=== PATIENT | female | born 2005 | race Caucasian/White ===

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

== ENCOUNTER 2023-02-13 13:33 | Outpatient (REF) | payer MEDICAID, SELFPAY ==
[2023-02-15 09:53] LABS: Hepatitis C Ab w Rflx HCV PCR Negative (Negative)
[2023-02-15 10:34] LABS: HIV-1/2 Ag & Ab Screen Negative (Negative)
[2023-02-15 10:47] LABS: Syphilis Serology (RPR) Negative (Negative)
[2023-02-15 13:23] LABS: Chlamydia Result Negative (Negative); GC Result Negative (Negative)
== END 2023-02-13 13:34 | disposition home or self-care (01) ==
LOC: NCHCN 13:33
PROVIDERS: Visit Provider Nurse Practitioner Family
DX: Z11.3 Encounter for screening for infections with a predominantly sexual mode of transmission (principal); Z11.4 Encounter for screening for human immunodeficiency virus [HIV]; Z11.59 Encounter for screening for other viral diseases; Z01.84 Encounter for antibody response examination
CPT/HCPCS: 86803; 87389; 87491; 87591; 86592

== ENCOUNTER 2023-05-07 13:35 | Outpatient (REF) | payer MEDICAID, SELFPAY ==
[2023-05-09 14:37] LABS: Chlamydia Result Negative (Negative); GC Result Negative (Negative)
== END 2023-05-07 13:36 | disposition home or self-care (01) ==
LOC: LBN 13:35
PROVIDERS: Visit Provider Physician Assistant
DX: Z11.3 Encounter for screening for infections with a predominantly sexual mode of transmission (principal); R30.0 Dysuria
CPT/HCPCS: 87491; 87591; 87480; 87510; 87660

== ENCOUNTER → 2023-05-16 01:33 | Outpatient (CLI) | payer MEDICAID, SELFPAY ==
--- NOTE | 2023-05-16 08:00 | DI.US_ITS ---
Exam(s) US PELVIS TRANSVAGINAL EXAM: US PELVIS TRANSVAGINAL CLINICAL HISTORY: pelvic pain,R10.2 TECHNIQUE: Transabdominal and transvaginal imaging was performed using standard protocol. COMPARISON: No exams were available for comparison FINDINGS: UTERUS: Anteverted. 7.3 x 2.8 x 4.9 cm Endometrium: 2 mm , IUD in place. Myometrium: Unremarkable. Cervix: Unremarkable. OVARIES: Right: Cyst or mass: 4.1 cm cyst with some internal echoes. No evidence of torsion. Left: Cyst or mass: None. DOPPLER: Color: Symmetric and uniform flow to both ovaries. No hyperemia. CUL-DE-SAC: Free fluid: None. IMPRESSION: 1. Normal-appearing uterus with IUD in place. 2. 4.1cm right ovarian cyst.. DATA REPOSITORY:
== END ==
PROVIDERS: Visit Provider Physician Assistant
DX: Z97.5 Presence of (intrauterine) contraceptive device (principal); N83.201 Unspecified ovarian cyst, right side
CPT/HCPCS: 76830; 76856

== ENCOUNTER 2023-11-07 14:08 | Outpatient (REF) | payer SELFPAY ==
[2023-11-08 21:17] LABS: HIV-1/2 Ag & Ab Screen Negative (Negative)
[2023-11-08 21:23] LABS: Hepatitis C Ab w Rflx HCV PCR Negative (Negative)
[2023-11-09 13:35] LABS: Chlamydia Result Positive (Negative); GC Result Negative (Negative)
[2023-11-11 12:23] LABS: Syphilis Serology (RPR) Negative (Negative)
== END 2023-11-07 14:09 | disposition home or self-care (01) ==
LOC: NCHCN 14:08
PROVIDERS: Visit Provider Nurse Practitioner Family
DX: Z11.59 Encounter for screening for other viral diseases (principal)
CPT/HCPCS: 86803; 87389; 87491; 87591; 86592

== ENCOUNTER 2024-03-09 03:02 | Outpatient (CLI) | payer MEDICAID, SELFPAY ==
[2024-03-09 11:59] LABS: Panorama Kit Sent via Fed Ex
[2024-03-09 12:02] LABS: Abs Immature Grans 0.04 10^3/uL (0.0-0.06); Absolute Basophil Count 0.05 10^3/uL (0.0-0.2); Absolute Eosinophil Count 0.03 10^3/uL (0.0-0.7); Absolute Monocyte Count 0.53 10^3/uL (0.1-0.8); Basophils % 0.5 %; Eosinophils % 0.3 %; HCT 41.1 % (36.0-46.0); HGB 14.1 g/dL (11.2-15.7); Immature Grans % 0.4 %; Lymphocytes % 10.3 %; MCH 31.6 pg (27.0-33.0); MCHC 34.3 % (32.0-36.0); MCV 92 fL (80-95); Monocytes % 5.4 %; Neutrophils % 83.1 %; Platelet Count 263 10^3/uL (130-400); RBC 4.46 10^6/uL (3.93-5.22); RDW 11.6 % (11.7-14.6); RDW-SD 38.9 fL; WBC 9.75 10^3/uL (4.4-10.8)
[2024-03-09 18:36] LABS: Hepatitis B Surface Ag Negative (Negative)
[2024-03-09 19:08] LABS: Hepatitis C Ab w Rflx HCV PCR Negative (Negative)
[2024-03-09 19:13] LABS: HIV-1/2 Ag & Ab Screen Negative (Negative)
[2024-03-10 10:26] LABS: Rubella IgG Ab (UVM) Positive (See Note); Varicella IgG Antibody Negative (See Note)
[2024-03-11 23:08] LABS: Syphilis IgG w/Reflex Nonreactive (Nonreactive)
[2024-03-21 03:02] LABS: Result Summary NEGATIVE; Specimen WB Whole Blood
== END 2024-03-09 03:03 | disposition home or self-care (01) ==
LOC: LBO 03:03
PROVIDERS: Visit Provider Advanced Practice Midwife
DX: Z34.91 Encounter for supervision of normal pregnancy, unspecified, first trimester (principal)
CPT/HCPCS: 36415; 81220; 81222; 86787; 86803; 86850; 86900; 86901; 87340; 87389; 85025; 86762; 86780

== ENCOUNTER 2024-03-09 11:44 | Outpatient (REF) | payer MEDICAID, SELFPAY ==
[2024-03-09 13:47] LABS: *AMPHETAMINES SCREEN URINE Negative (Negative); *BARBITURATES SCREEN URINE Negative (Negative); *BENZODIAZEPINES SCREEN URINE Negative (Negative); Cannabinoids THC Positive (Negative); Cocaine Screen,Urine Negative (Negative); METHADONE URINE SCREEN Negative (Negative); OPIATES URINE SCREEN Negative (Negative)
[2024-03-09 13:49] LABS: Tricyclic Antidepressants Negative (Negative)
[2024-03-11 11:46] LABS: Fentanyl Scr w/Rfx Confirm Negative ng/mL (<1)
[2024-03-11 14:15] LABS: Chlamydia Result Negative (Negative); GC Result Negative (Negative)
[2024-03-14 12:45] LABS: Buprenorphine Negative ng/mL (Cutoff: 5.0); Norbuprenorphine Negative ng/mL (Cutoff: 2.5)
== END 2024-03-09 11:45 | disposition home or self-care (01) ==
LOC: LBN 11:44
PROVIDERS: Visit Provider Advanced Practice Midwife
DX: Z34.91 Encounter for supervision of normal pregnancy, unspecified, first trimester (principal); Z81.3 Family history of other psychoactive substance abuse and dependence
CPT/HCPCS: 80307; 80348; 87491; 87591; 87086

== ENCOUNTER 2024-07-03 02:15 | Outpatient (CLI) | payer MEDICAID, SELFPAY ==
[2024-07-03 10:35] LABS: HCT 39.4 % (36.0-46.0); HGB 13.4 g/dL (11.2-15.7); MCH 30.8 pg (27.0-33.0); MCV 91 fL (80-95); MPV 10.8 fL (8.0-11.0); Platelet Count 251 10^3/uL (130-400); RBC 4.35 10^6/uL (3.93-5.22); RDW 13.4 % (11.7-14.6); WBC 6.06 10^3/uL (4.4-10.8)
[2024-07-03 10:44] LABS: Glucose,1 Hr (Glucola) 154 mg/dL (80-140)
== END 2024-07-03 02:16 | disposition home or self-care (01) ==
PROVIDERS: Visit Provider Obstetrics & Gynecology
DX: Z34.93 Encounter for supervision of normal pregnancy, unspecified, third trimester
CPT/HCPCS: 36415; 82950; 85027

== ENCOUNTER 2024-07-03 09:54 | Outpatient (REF) | payer MEDICAID, SELFPAY ==
[2024-07-03 10:59] LABS: *AMPHETAMINES SCREEN URINE Negative (Negative); *BARBITURATES SCREEN URINE Negative (Negative); *BENZODIAZEPINES SCREEN URINE Negative (Negative); Cannabinoids THC Positive (Negative); Cocaine Screen,Urine Negative (Negative); METHADONE URINE SCREEN Negative (Negative); OPIATES URINE SCREEN Negative (Negative)
[2024-07-03 11:01] LABS: Tricyclic Antidepressants Negative (Negative)
[2024-07-06 11:19] LABS: Fentanyl Scr w/Rfx Confirm Negative ng/mL (<1)
[2024-07-09 11:39] LABS: Buprenorphine Negative ng/mL (Cutoff: 5.0)
== END 2024-07-03 09:55 | disposition home or self-care (01) ==
LOC: LBN 09:54
PROVIDERS: Visit Provider Obstetrics & Gynecology
DX: Z34.92 Encounter for supervision of normal pregnancy, unspecified, second trimester (principal)
CPT/HCPCS: 80307; 80348

== ENCOUNTER 2024-07-10 00:44 | Outpatient (CLI) | payer MEDICAID, SELFPAY ==
[2024-07-10 10:12] LABS: Glucose 1 Hour 153 mg/dL
[2024-07-10 12:00] LABS: Glucose 3 Hour 103 mg/dL
== END 2024-07-10 00:45 | disposition home or self-care (01) ==
LOC: LBO 00:44
PROVIDERS: Obstetrics & Gynecology; Visit Provider Obstetrics & Gynecology
DX: Z34.92 Encounter for supervision of normal pregnancy, unspecified, second trimester (principal)
CPT/HCPCS: 36415; 82951

== ENCOUNTER 2024-08-14 15:22 | Outpatient (CLI) | payer MEDICAID, SELFPAY ==
[2024-08-14 14:09] VITALS: O2SAT 97
[2024-08-14 14:29] LABS: HCT 40.1 % (36.0-46.0); HGB 13.5 g/dL (11.2-15.7); MCH 30.4 pg (27.0-33.0); MCHC 33.7 % (32.0-36.0); MCV 90 fL (80-95); MPV 12.3 fL (8.0-11.0); Platelet Count 276 10^3/uL (130-400); RBC 4.44 10^6/uL (3.93-5.22); RDW 12.4 % (11.7-14.6); RDW-SD 41.1 fL
[2024-08-14 14:59] LABS: COMMENT (LAB VIEW ONLY) 236.22 mg/dL; PROTEIN 62.8 mg/dL; Prot/Crea Ur Ratio 0.26
[2024-08-14 15:11] LABS: ALT 26 U/L (14-59); AST 19 U/L (15-37); Albumin 2.8 g/dL (3.4-5.0); Alkaline Phosphatase 215 U/L (46-116); Anion Gap 9.4 mmol/L (3-11); BUN 8 mg/dL (7-18); Bilirubin, Total 0.3 mg/dL (0.2-1.0); CO2 25.6 mmol/L (21.0-32.0); CREATININE 0.7 mg/dL (0.55-1.02); Chloride 106 mmol/L (98-107); Estimated GFR 126.11 (mL/min/1.73m2); Glucose 75 mg/dL (74-106); Potassium 3.7 mmol/L (3.5-5.1); Sodium 141 mmol/L (136-145); Total Protein 7.7 g/dL (6.4-8.2)
== END 2024-08-14 15:23 | disposition home or self-care (01) ==
LOC: LBO 15:22
PROVIDERS: Visit Provider Obstetrics & Gynecology
DX: O02.81 Inappropriate change in quantitative human chorionic gonadotropin (hCG) in early pregnancy; O16.3 Unspecified maternal hypertension, third trimester
CPT/HCPCS: 36415; 80053; 85027; 82565; 84156

== ENCOUNTER 2024-08-18 10:44 | Outpatient (REF) | payer MEDICAID, SELFPAY | END 2024-08-18 10:45 | disposition home or self-care (01) | LOC: LBN 10:44 | PROVIDERS: Visit Provider Obstetrics & Gynecology | DX: Z34.93 Encounter for supervision of normal pregnancy, unspecified, third trimester (principal); Z3A.34 34 weeks gestation of pregnancy | CPT/HCPCS: 87081 ==

== ENCOUNTER 2024-08-21 09:19 | Outpatient (CLI) | payer MEDICAID, SELFPAY ==
[2024-08-21] VITALS (7 sets, daily range): BP systolic 134–140; BP diastolic 86–97; PULSE 70–76; TEMP 36.6
[2024-08-21 14:46] LABS: HCT 38.1 % (36.0-46.0); HGB 12.9 g/dL (11.2-15.7); MCH 30.5 pg (27.0-33.0); MCHC 33.9 % (32.0-36.0); MCV 90 fL (80-95); MPV 12.6 fL (8.0-11.0); Platelet Count 234 10^3/uL (130-400); RBC 4.23 10^6/uL (3.93-5.22); RDW 12.4 % (11.7-14.6); RDW-SD 40.8 fL; WBC 9.08 10^3/uL (4.4-10.8)
[2024-08-21 15:03] LABS: ALT 28 U/L (14-59); AST 20 U/L (15-37); Albumin 2.7 g/dL (3.4-5.0); Alkaline Phosphatase 205 U/L (46-116); Anion Gap 8.9 mmol/L (3-11); BUN 9 mg/dL (7-18); Bilirubin, Total 0.3 mg/dL (0.2-1.0); CO2 25.1 mmol/L (21.0-32.0); CREATININE 0.7 mg/dL (0.55-1.02); Calcium 8.7 mg/dL (8.5-10.1); Chloride 105 mmol/L (98-107); Estimated GFR 126.11 (mL/min/1.73m2); Glucose 78 mg/dL (74-106); Potassium 3.7 mmol/L (3.5-5.1); Sodium 139 mmol/L (136-145); Total Protein 6.9 g/dL (6.4-8.2)
[2024-08-21 15:03] LABS: COMMENT (LAB VIEW ONLY) 236.75 mg/dL; PROTEIN 96.1 mg/dL
--- NOTE | 2024-08-21 17:52 | W.OBNST ---
Date of service: 08/21/24 Time of Service: 15:00 NST Evaluation Reason for NST Reasons for Nonstress Test: GESTATIONAL HYPERTENSION Gestational Age Gestational Age in Weeks and Days: 34 Weeks and 5Days Test and Monitor Explained Test/Monitor Explained: Test Explained, Monitor Explained and Patient Verbalized Understanding Vital Signs Blood Pressure: 134/86 Pulse: 75 Temperature: 97.8 F Urine Results Urine Protein: Positive Urine Ketones: Negative Urine Glucose: Negative Urine Blood: Negative NST Information Date on Monitor: 08/21/24 Time on Monitor: 13:00 Date off Monitor: 08/21/24 Time off Monitor: 14:11 Total Time on Monitor: 71 NST Interventions: PO Hydration Contraction Frequency: 1-7 NST Evaluation Patient States Movement: Present FHR Baseline: 125 Variability: Moderate 6-25 bpm Accelerations: 15x15 Decelerations: None NST Results: Reactive Note Ultrasound Done: N/A (done in Radiology). NST Note Note: See record NST Reviewed and Verified by: Vicky Escalante
== END 2024-08-21 15:40 ==
LOC: BCD 09:20 → OBS 13:51
PROVIDERS: Visit Provider Obstetrics & Gynecology
DX: O16.3 Unspecified maternal hypertension, third trimester (principal); Z3A.34 34 weeks gestation of pregnancy
CPT/HCPCS: 59025; 80053; 85027; 82565; 84156

== ENCOUNTER 2024-08-21 09:21 | Outpatient (CLI) | payer MEDICAID, SELFPAY ==
--- NOTE | 2024-08-21 09:15 | DI.US_ITS ---
Exam(s) US OB GREGORIO, WEIGHT BIO PROF. EXAM: US OB GREGORIO, WEIGHT BIO PROF. CLINICAL HISTORY: elevated blood pressures in , O16.3. TECHNIQUE: Transabdominal obstetrical ultrasound performed. COMPARISON: US US OB 2-3 TRIMESTER from 05/19/2024 FINDINGS: Number of fetuses: 1 position: CEPHALIC Placental location: There is a succenturiate lobe. There is a grade 1 to grade 2 anterior placenta. There is an accessory placenta in the fundus. No evidence of previa. BIOMETRIC DATA: BPD: 8.38cm, 33weeks 5days HC: 30.46cm, 33weeks 6days AC: 28.38cm, 32weeks 3days FL: 5.86cm, 30weeks 4days EFW: 1,908.2g, 4lb 5.17oz, 3% Composite Age: 32weeks 5days ANTONI: 10/16/2024 Heart Rate: 136bpm Amniotic fluid index: 14.41cm. The largest pocket is 5.91 cm. BIOPHYSICAL PROFILE SCORE: breathin out of 2 movement: 2 out of 2 tone: 2 out of 2 Amniotic fluid: 2 out of 2 Overall biophysical profile score: 6 out of 8. UMBILICAL ARTERY DOPPLER: Proximal/mid/distal PI: 1.02/1.03/0.91 RI: 0.66/0.64/0.60 S/D ratio: 3.0/2.8/2.5 The pulsatility and resistive indices are within the 50th and 95th percentile. The SD ratio is in the 50th to 95th percentile in its proximal and mid portions and in the 5th to 50t h percentile in the distal portion. IMPRESSION: 1. Single live intrauterine gestation as above. 2. Estimated weight is 1908gms. This is the 3rd percentile. 3. Amniotic fluid index is 14.1 cm. The largest pocket is 5.91 cm. 4. The overall biophysical profile score is 6 out of 8. 5. The umbilical artery Dopplers are within normal limits. DATA REPOSITORY:
== END 2024-08-21 09:41 ==
LOC: DI 09:21
PROVIDERS: Visit Provider Obstetrics & Gynecology
DX: O16.3 Unspecified maternal hypertension, third trimester (principal); Z3A.33 33 weeks gestation of pregnancy
CPT/HCPCS: 76816; 76819

== ENCOUNTER 2024-08-24 07:20 | Outpatient (CLI) | payer MEDICAID, SELFPAY ==
[2024-08-24 13:08] VITALS: BP 138/95; PULSE 79; TEMP 36.8
[2024-08-24 13:27] VITALS: BP 138/95; PULSE 79
[2024-08-24 13:38] VITALS: BP 134/93; PULSE 71
--- NOTE | 2024-08-24 13:44 | W.OBNST ---
Date of service: 08/24/24 Time of Service: 13:44 NST Evaluation Reason for NST Reasons for Nonstress Test: GESTATIONAL HYPERTENSION Gestational Age Gestational Age in Weeks and Days: 35 Weeks and 1Days Test and Monitor Explained Test/Monitor Explained: Test Explained, Monitor Explained and Patient Verbalized Understanding Vital Signs Blood Pressure: 138/95 Pulse: 79 Temperature: 98.2 F NST Information Date on Monitor: 08/24/24 Time on Monitor: 13:11 Date off Monitor: 08/24/24 Time off Monitor: 13:36 Total Time on Monitor: 25 NST Interventions: PO Hydration NST Evaluation Patient States Movement: Present FHR Baseline: 140 Variability: Moderate 6-25 bpm Accelerations: 15x15 Decelerations: None NST Results: Reactive Note Ultrasound Done: N/A. NST Note Note: Patient seen on the center for testing. NST is reactive, category 1 with a wildly active child. Blood pressure remained stable. She is having no signs or symptoms of worsening preeclampsia. She will have twice weekly testing, and labor induction scheduled at this point at 37 weeks. All questions answered. NST Reviewed and Verified by: Karol Juárez
[2024-08-24 13:45] VITALS: BP 138/95; PULSE 79; TEMP 36.8
== END 2024-08-24 13:47 | disposition other institution (70) ==
LOC: BCD 07:23 → OBS 13:07
PROVIDERS: Visit Provider Obstetrics & Gynecology
DX: Z3A.35 35 weeks gestation of pregnancy (principal); O13.3 Gestational [pregnancy-induced] hypertension without significant proteinuria, third trimester
CPT/HCPCS: 59025

== ENCOUNTER 2024-08-28 10:42 | Outpatient (CLI) | payer MEDICAID, SELFPAY ==
[2024-08-28 13:32] VITALS: BP 135/77; PULSE 80
--- NOTE | 2024-08-28 14:49 | PDOC.NST_ITS ---
Date of service: 08/28/24 Time of Service: 14:49 NST Evaluation Reason for NST Reasons for Nonstress Test: OTHER, SEE COMMENT Reason for NST Other: Pre ecclampsia and growth restriction Gestational Age Gestational Age in Weeks and Days: 35 Weeks and 5Days Test and Monitor Explained Test/Monitor Explained: Test Explained Vital Signs Blood Pressure: 135/77 Pulse: 80 NST Information Time on Monitor: 13:10 NST Interventions: None NST Evaluation Patient States Movement: Present FHR Baseline: 125 Variability: Moderate 6-25 bpm Accelerations: 15x15 Decelerations: None NST Results: Reactive Note Ultrasound Done: N/A. NST Note Note: NST reactive and reassuring. Blood pressures still elevated but not severe range . Patient denies s/sx of pre-eclampsia and reports good movement. To have pre-E labs repeated, today. Discussed possibility of 24 hour urine for accuracy; however, patient lost her dog in a tragic event, today, and does not feel like she will be able to complete it appropriately at this time. Scheduled for repeat dopplers given growth restriction for early next week. Precautions reviewed and encouraged a low threshold for seeking immediate medical evaluation if any concerns arise. Of note, patient states plan in place for induction at 37 weeks. We discussed the possible need for moving the induction to sooner if any evidence of further deterioration arises. She was offered to be taken off of work at this time, but currently declines for financial purposes. NST Reviewed and Verified by: Sunita Escobar
[2024-08-28 16:13] VITALS: BP 135/77; PULSE 80
== END 2024-08-28 15:14 ==
LOC: BCD 10:46 → OBS 13:04
PROVIDERS: PCP Obstetrics & Gynecology; Visit Provider Obstetrics & Gynecology
DX: Z3A.35 35 weeks gestation of pregnancy (principal); O14.03 Mild to moderate pre-eclampsia, third trimester; O36.5930 Maternal care for other known or suspected poor fetal growth, third trimester, not applicable or unspecified
CPT/HCPCS: 59025

== ENCOUNTER 2024-08-28 16:31 | Outpatient (CLI) | payer MEDICAID, SELFPAY ==
[2024-08-28 14:13] LABS: HGB 13.4 g/dL (11.2-15.7); MCH 30.3 pg (27.0-33.0); MCHC 34.4 % (32.0-36.0); MCV 88 fL (80-95); MPV 12.8 fL (8.0-11.0); Platelet Count 247 10^3/uL (130-400); RBC 4.42 10^6/uL (3.93-5.22); RDW 12.4 % (11.7-14.6); RDW-SD 40.2 fL; WBC 7.56 10^3/uL (4.4-10.8)
[2024-08-28 14:47] LABS: COMMENT (LAB VIEW ONLY) 175.41 mg/dL; PROTEIN 101.6 mg/dL; Prot/Crea Ur Ratio 0.57
[2024-08-28 15:14] LABS: ALT 34 U/L (14-59); AST 26 U/L (15-37); Albumin 2.7 g/dL (3.4-5.0); Alkaline Phosphatase 229 U/L (46-116); Anion Gap 8.6 mmol/L (3-11); BUN 10 mg/dL (7-18); Bilirubin, Total 0.3 mg/dL (0.2-1.0); CO2 26.4 mmol/L (21.0-32.0); CREATININE 0.7 mg/dL (0.55-1.02); Calcium 9.3 mg/dL (8.5-10.1); Chloride 106 mmol/L (98-107); Estimated GFR 126.11 (mL/min/1.73m2); Glucose 89 mg/dL (74-106); Potassium 3.6 mmol/L (3.5-5.1); Sodium 141 mmol/L (136-145); Total Protein 7.2 g/dL (6.4-8.2)
== END 2024-08-28 16:32 | disposition home or self-care (01) ==
LOC: LBO 16:34
PROVIDERS: PCP Obstetrics & Gynecology; Visit Provider Obstetrics & Gynecology
DX: O14.93 Unspecified pre-eclampsia, third trimester (principal); P05.9 Newborn affected by slow intrauterine growth, unspecified
CPT/HCPCS: 36415; 80053; 85027; 82565; 84156

== ENCOUNTER 2024-08-31 01:52 | Outpatient (CLI) | payer MEDICAID, SELFPAY ==
--- NOTE | 2024-08-31 07:00 | DI.US_ITS ---
Exam(s) US OB GREGORIO UMBILICAL ARTERY EXAM: US OB GREGORIO UMBILICAL ARTERY CLINICAL HISTORY: symmetrical growth restriction,P05.9. TECHNIQUE: Transabdominal obstetrical ultrasound was performed. COMPARISON: US US OB GREGORIO, WEIGHT BIO PROF. from 08/21/2024 FINDINGS: There is a single viable intrauterine gestation with cardiac activity identified-134 bpm. Fetu s is presently in cephalic position . The placenta is grade 2-and anterior-fundal with succenturiate lobe and no evidence of placenta previ a. Amniotic Fluid Index is within normal limits, measuring 14.2 cm cm. Dating parameters places at approximately 33 weeks and 2 days gestational age, implying ANTONI of 10/17/2024 BPD measures 34 weeks and 2 days Head circumference measures 34 weeks and 0 days Abdominal circumference measures 32 weeks and 4 days Femur length measures 32 weeks and 1 day Estimated weight is 2039 grams (4 pounds, 8 ounces). Fetus is at less than 3rd percentile on the Hadlock scale. UMBILICAL ARTERY DOPPLER READINGS: Prox( side)/mid level/distal (placental side) readings are as follows: PI: 1.29/0.80/0.95 the proximal PI reading is high RI: 0.68/0.54/0.61 S/D ratio: 3.2/2.2/2.5 IMPRESSION: 1. Single viable intrauterine gestation which remains less than 3rd percentile. 2. Umbilical artery readings are as above. The proximal PI reading is 1.29 which is elevated. Other readings are within normal limits. 3. Normal amount of amniotic fluid with GREGORIO equals 14.2 cm DATA REPOSITORY:
== END 2024-08-31 02:12 ==
LOC: DI 01:52
PROVIDERS: PCP Obstetrics & Gynecology; Visit Provider Obstetrics & Gynecology
DX: O36.5930 Maternal care for other known or suspected poor fetal growth, third trimester, not applicable or unspecified (principal); Z3A.34 34 weeks gestation of pregnancy
CPT/HCPCS: 76816; 76820

== ENCOUNTER 2024-08-31 08:08 | Outpatient (CLI) | payer MEDICAID, SELFPAY ==
[2024-08-31 13:17] VITALS: PULSE 62
[2024-08-31 13:50] VITALS: BP 132/88; PULSE 62; TEMP 36.7
--- NOTE | 2024-08-31 15:12 | W.OBNST ---
Date of service: 08/31/24 Time of Service: 13:30 NST Evaluation Reason for NST Reasons for Nonstress Test: OTHER, SEE COMMENT Reason for NST Other: Pre-E Gestational Age Gestational Age in Weeks and Days: 36 Weeks and 1Days Test and Monitor Explained Test/Monitor Explained: Test Explained, Monitor Explained and Patient Verbalized Understanding Vital Signs Blood Pressure: 132/88 Pulse: 62 Temperature: 98.1 F NST Information Date on Monitor: 08/31/24 Time on Monitor: 13:16 Date off Monitor: 08/31/24 Time off Monitor: 13:56 Total Time on Monitor: 40 NST Interventions: PO Hydration Contraction Frequency: 2-7 NST Evaluation Patient States Movement: Present FHR Baseline: 130 Variability: Moderate 6-25 bpm Accelerations: 15x15 Decelerations: None NST Results: Reactive Note Ultrasound Done: N/A. NST Note Note: see records NST Reviewed and Verified by: Vicky Escalante
[2024-08-31 15:19] VITALS: BP 132/88; PULSE 62; TEMP 36.7
== END 2024-08-31 14:14 ==
LOC: BCD 08:09 → OBS 13:13
PROVIDERS: PCP Obstetrics & Gynecology; Visit Provider Obstetrics & Gynecology
DX: Z3A.36 36 weeks gestation of pregnancy (principal); O14.03 Mild to moderate pre-eclampsia, third trimester
CPT/HCPCS: 59025

== ENCOUNTER 2024-09-04 07:31 | Outpatient (CLI) | payer MEDICAID, SELFPAY ==
[2024-09-04 13:09] VITALS: BP 147/86; PULSE 77; TEMP 36.7
[2024-09-04 13:14] VITALS: BP 147/86; PULSE 77
[2024-09-04 13:30] VITALS: BP 138/94; PULSE 72
--- NOTE | 2024-09-04 17:06 | W.OBNST ---
Date of service: 09/04/24 Time of Service: 13:30 NST Evaluation Reason for NST Reasons for Nonstress Test: GESTATIONAL HYPERTENSION Gestational Age Gestational Age in Weeks and Days: 36 Weeks and 5Days Test and Monitor Explained Test/Monitor Explained: Test Explained, Monitor Explained and Patient Verbalized Understanding Vital Signs Blood Pressure: 147/86 Pulse: 77 Temperature: 98.1 F Urine Results Urine Protein: Positive Urine Ketones: Negative Urine Glucose: Negative Urine Blood: Negative NST Information Date on Monitor: 09/04/24 Time on Monitor: 13:09 Date off Monitor: 09/04/24 Time off Monitor: 13:32 Total Time on Monitor: 23 NST Interventions: PO Hydration NST Evaluation Patient States Movement: Present FHR Baseline: 120 Variability: Moderate 6-25 bpm Accelerations: 15x15 Decelerations: None NST Results: Reactive Note Ultrasound Done: N/A. NST Note Note: See record NST Reviewed and Verified by: Vicky Escalante
[2024-09-04 17:07] VITALS: BP 147/86; PULSE 77; TEMP 36.7
== END 2024-09-04 13:50 ==
LOC: BCD 07:32 → OBS 13:05
PROVIDERS: PCP Obstetrics & Gynecology; Visit Provider Obstetrics & Gynecology
DX: O13.3 Gestational [pregnancy-induced] hypertension without significant proteinuria, third trimester (principal); Z3A.36 36 weeks gestation of pregnancy
CPT/HCPCS: 59025

== ENCOUNTER 2024-09-06 14:01 | Inpatient (IN) | payer MEDICAID, SELFPAY ==
--- NOTE | 2024-09-04 14:10 | W.PM.OBHPL1 ---
Date of service: 09/06/24 Time of Service: 19:00 Assessment and Plan Assessment and plan (1) Pre-eclampsia: Status: Acute Assessment and plan: 37wk IOL - will start with misoprostol for cervical ripening. We discussed the various methods that may be used and what to expect. Will monitor labs and BPs. Currently stable and asymptomatic. (2) Symmetrical growth restriction: Status: Acute Assessment and plan: Will monitor baby. NSTs have been reactive. Peds aware of her planned induction. (3) Maternal varicella, non-immune: Status: Acute Assessment and plan: Offer vaccine pp. (4) Placenta succenturiata in third trimester: Status: Acute Assessment and plan: Will be prepared for increased risk of retained placenta and PPH. OB-HPI Labor/Delivery History of Present Illness Reason for Visit: PEC Chief Complaint: Scheduled Induction of Labor Indication for Induction: Intrauterine Growth Restriction/ Growth Restriction and PreEclampsia. ANTONI Calculator Estimated Delivery Date Method Current WG Current Estimate 09/27/24 Ultrasound #1 37w 1d Other Estimates 09/10/24 LMP (Uncertain) 39w 4d Comments: P0 coming for induction of labor 09/06/24 at 37wks due to PEC without severe features but in the setting of FGR. EFW on 08/31 was 2039g (4lb 8oz). She has remained asymptomatic and felt excellent movement. History of Present Expected Delivery Route/Plan - elects MD shanti ALEXANDER- Jerardo (first baby together) Varicella non-immune, offer vaccine BG - Tammie May Specific Issues/Plan 1. Anxiety and ADHD - no medications or treatments. 2. 5-Ps pos. for family use - UDS +THC positive both at admission and 28 weeks. Referral to for Family Care Plan 3. VZV NI - offer vaccine pp 4. gHTN/PEC - weekly labs, NST's w/BP checks twice weekly. - Anticipate IOL 37 weeks 5. growth Restriction - Growth sono 08/21/24: EFW <3%ile, normal dopplers, normal GREGORIO, BPP 8/10 (No breathing noted) 6. GBS+ - ppx during labor 7. Succenturiate lobe cfDNA low risk x5 Contraceptive Planning - Plans for IUD Review of Systems Constitutional Constitutional: Reports system reviewed and no additional complaints, except as documented Gastrointestinal Gastrointestinal: Denies nausea and Denies vomiting Genitourinary Genitourinary: Reports system reviewed and no additional complaints, except as documented Musculoskeletal Comments: No regular contractions PFSH All Active Problems (Updated 09/07/24 @ 06:17 by Vicky Escalante MD) Placenta succenturiata in third trimester (Acute) Symmetrical growth restriction (Acute) Pre-eclampsia (Acute) Maternal varicella, non-immune (Acute) Marijuana use (Acute) Anxiety (Chronic) (Acute) Medical History (Updated 09/07/24 @ 06:17 by Vicky Escalante MD) Family history of drug use ADHD Ovarian cyst, right declined f/u sono Hx of prematurity Born at 34 weeks Tibial torsion Family History (Updated 03/09/24 @ 11:00 by Kinza Mauricio CNM) Father Essential hypertension Maternal Grandmother Hypertension Diabetes Maternal Grandfather Diabetes Alcohol use disorder Brother Depression Anxiety ADHD Substance use disorder Paternal Grandfather Alcohol use disorder Paternal Grandmother Alcohol use disorder Social History (Updated 03/09/24 @ 12:17 by Kinza Mauricio CNM) Smoking/Tobacco Use Status: Never Smoking risk assessment performed?: Yes Drug use: Never Substance use type: marijuana Housing: house Sexually active: Yes Do you feel safe at home: Yes Do you feel safe in your relationship?: Yes Female Reproductive History Menstrual control method: progestin IUCD History History 1 Para Hx # Term Pregnancies 0 Multiple births Hx # Pregnancies Ectopic pregnancies AB induced Hx Number of Living Children AB spontaneous Meds Allergies and Home Medications Allergies Allergy/AdvReac Type Severity Reaction Status Date / Time No Known Allergies Allergy Verified 08/31/24 13:05 Home Medications ?Medication ?Instructions ?Recorded ?Confirmed ?Type PNV 153-FA 400 mcg-om3 35 mg-dha 2 tab PO DAILY 03/09/24 09/06/24 History 25 mg-epa 5 mg-fish oil chew tablet ( Gummies) Exam Detailed Labor and Delivery Exam Dilation: 1 Effacement (%): 70 station: -2 Cervix position: posterior Consistency: medium Larkin Score: Cervical Points Exam 0 1 2 3 Dilation Closed 1-2cm 3-4 cm 5-6cm Effacement 0-30% 40-50% 60-70% 80% Consistency Firm Medium Soft Station -3 -2 -1,0 +1,+2 Position Posterior Mid Anterior Detailed HEENT Exam Head: Present normocephalic and atraumatic Detailed Abdominal Exam Comments: gravid, nontender Detailed Neurological Exam Neurological: Present alert, oriented X3 and CN II-XII intact DetailedPsychiatric Exam Psychiatric: Present normal affect, normal thought process and cooperative Risk Assessment Risk for Shoulder Dystocia Historical/Initial OB: NEGATIVE FOR: Pelvic Abnormality, Pre- BMI>30, Previous Shoulder Dystocia or Previous Macrosomia Risk for Pre-Eclampsia Yes, if one or more: NEGATIVE FOR: Hx Pre-E/Gest HTN, Chronic HTN, Multiple Gestation, Pre-gestational DM, Renal Disease, Systemic Lupus or APA Syndrome Yes, if 2 or more: POSITIVE FOR: Nulliparity; NEGATIVE FOR: Age>= 35 yrs, >10yr btwn pregnancies, BMI>30, ethinicty, Mother/Sister w/ Pre-E or Previous IUGR Risk for Post- Hemorrhage Initial: NEGATIVE FOR: Multiple Gestation, Previous PPH, Known Clotting Deficiency, Grand Multiparity or Anticoagulation Risks Reviewed Risks Reviewed Upon Admission: Yes
[2024-09-06 19:39] VITALS: BP 142/95; PULSE 80
[2024-09-06 19:54] VITALS: BP 142/95; PULSE 80; RESP 16; TEMP 36.7
[2024-09-06 20:06] LABS: HCT 36.4 % (36.0-46.0); HGB 12.4 g/dL (11.2-15.7); MCH 30.6 pg (27.0-33.0); MCHC 34.1 % (32.0-36.0); MCV 90 fL (80-95); Platelet Count 211 10^3/uL (130-400); RBC 4.05 10^6/uL (3.93-5.22); RDW 12.5 % (11.7-14.6); RDW-SD 40.7 fL; WBC 8.43 10^3/uL (4.4-10.8)
[2024-09-06] MEDS: miSOPROStol 25 MCG TAB PO (20:15)
[2024-09-06 20:20] LABS: ALT 26 U/L (14-59); AST 18 U/L (15-37); Albumin 2.5 g/dL (3.4-5.0); Alkaline Phosphatase 209 U/L (46-116); Anion Gap 10.9 mmol/L (3-11); BUN 11 mg/dL (7-18); Bilirubin, Total 0.2 mg/dL (0.2-1.0); CO2 22.1 mmol/L (21.0-32.0); CREATININE 0.8 mg/dL (0.55-1.02); Calcium 8.8 mg/dL (8.5-10.1); Chloride 108 mmol/L (98-107); Estimated GFR 107.44 (mL/min/1.73m2); Glucose 89 mg/dL (74-106); Potassium 3.8 mmol/L (3.5-5.1); Sodium 141 mmol/L (136-145); Total Protein 6.6 g/dL (6.4-8.2)
[2024-09-06 22:09] VITALS: BP 136/91; PULSE 70
[2024-09-06 23:43] VITALS: BP 132/86; PULSE 67; TEMP 36.8
[2024-09-07] VITALS (76 sets, daily range): BP systolic 133–192; BP diastolic 66–121; PULSE 0–90; RESP 18; TEMP 36.5–36.8; O2SAT 97–100; BMI 23.6
[2024-09-07 00:16] LABS: *AMPHETAMINES SCREEN URINE Negative (Negative); *BARBITURATES SCREEN URINE Negative (Negative); *BENZODIAZEPINES SCREEN URINE Negative (Negative); Cannabinoids THC Positive (Negative); Cocaine Screen,Urine Negative (Negative); METHADONE URINE SCREEN Negative (Negative); OPIATES URINE SCREEN Negative (Negative); Tricyclic Antidepressants Negative (Negative)
[2024-09-07] MEDS: Normal Saline Flush 10 ML SYR IVP (05:20)
--- NOTE | 2024-09-07 06:02 | W.PM.PROGNOT ---
Date of Service Date of service: 09/07/24 Time of Service: 06:02 Subjective Subjective Interval history since last seen: Pt has had 1 dose of misoprostol with resulting cramping but not too uncomfortable. She did not get a second dose due to uterine irritability. She was able to sleep some overnight. She denies headache, n/v. Feeling movement. No bleeding/LOF. Objective Last Vital Signs Temp 98.2 F 09/06/24 23:43 Pulse 60 09/07/24 04:53 Resp 16 09/06/24 19:54 BP 153/97 H 09/07/24 04:53 Laboratory Results - last 24 hr 09/06/24 09/06/24 19:53 23:45 WBC 8.43 RBC 4.05 Hgb 12.4 Hct 36.4 MCV 90 MCH 30.6 MCHC 34.1 RDW 12.5 Plt Count 211 MPV Sodium 141 Potassium 3.8 Chloride 108 H Carbon Dioxide 22.1 Anion Gap 10.9 BUN 11 Creatinine 0.8 Est GFR (CKD-EPI 2020) 107.44 Glucose 89 Calcium 8.8 Total Bilirubin 0.2 AST 18 ALT 26 Alkaline Phosphatase 209 H Total Protein 6.6 Albumin 2.5 L Urine Opiates Screen Negative Urine Methadone Screen Negative Ur Barbiturates Screen Negative Ur Tricyclics Screen Negative Ur Amphetamines Screen Negative U Benzodiazepines Scrn Negative Urine Cocaine Screen Negative Ur THC Screen Positive A ABO/Rh O Positive Antibody Screen NEGATIVE
--- NOTE | 2024-09-07 06:12 | PGE_ITS ---
Date of service: 09/07/24 Time of Service: 06:12 Pelvic Exam Comments: Checked by nurse at 5:00 with cervix still posterior, not significantly changed. Fetus A Heart Rate Baseline: 120 Variability: Moderate (6-25 BPM) Categories: Category I Accelerations: 15 X 15 Decelerations: None Amniotic Membrane Status: Intact Assessment and Plan Assessment and plan (1) Pre-eclampsia: Status: Acute Assessment and plan: BP slightly higher then it has been. Pt still asymptomatic. Will start PO labetalol. If BPs become severe range will start mag sulfate. Will continue to monitor sxms and labs. Plan to start pitocin for continued labor induction. Reviewed expected contractions and pain management options. Reviewed continuous monitoring for s igns of distress. (2) Symmetrical growth restriction: Status: Acute Assessment and plan: status reassuring (3) Placenta succenturiata in third trimester: Status: Acute Assessment and plan: Will be prepared for retained placenta and possible increase bleeding. Objective Abnormal lab results 09/06/24 09/06/24 Range/Units 19:53 23:45 Chloride 108 H (98-107) mmol/L Alkaline Phosphatase 209 H (46-116) U/L Albumin 2.5 L (3.4-5.0) g/dL Ur THC Screen Positive A (Negative) Temp Pulse Resp BP 98.2 F 60 16 153/97 H 09/06/24 23:43 09/07/24 04:53 09/06/24 19:54 09/07/24 04:53 Laboratory Results WBC 8.43 10^3/uL (4.4-10.8) 09/06/24 19:53 RBC 4.05 10^6/uL (3.93-5.22) 09/06/24 19:53 Hgb 12.4 g/dL (11.2-15.7) 09/06/24 19:53 Hct 36.4 % (36.0-46.0) 09/06/24 19:53 MCV 90 fL (80-95) 09/06/24 19:53 MCH 30.6 pg (27.0-33.0) 09/06/24 19:53 MCHC 34.1 % (32.0-36.0) 09/06/24 19:53 RDW 12.5 % (11.7-14.6) 09/06/24 19:53 Plt Count 211 10^3/uL (130-400) 09/06/24 19:53 MPV fL (8.0-11.0) 09/06/24 19:53 Sodium 141 mmol/L (136-145) 09/06/24 19:53 Potassium 3.8 mmol/L (3.5-5.1) 09/06/24 19:53 Chloride 108 mmol/L (98-107) H 09/06/24 19:53 Carbon Dioxide 22.1 mmol/L (21.0-32.0) 09/06/24 19:53 Anion Gap 10.9 mmol/L (3-11) 09/06/24 19:53 BUN 11 mg/dL (7-18) 09/06/24 19:53 Creatinine 0.8 mg/dL (0.55-1.02) 09/06/24 19:53 Est GFR (CKD-EPI 2020) 107.44 (mL/min/1.73m2) 09/06/24 19:53 Glucose 89 mg/dL (74-106) 09/06/24 19:53 Calcium 8.8 mg/dL (8.5-10.1) 09/06/24 19:53 Total Bilirubin 0.2 mg/dL (0.2-1.0) 09/06/24 19:53 AST 18 U/L (15-37) 09/06/24 19:53 ALT 26 U/L (14-59) 09/06/24 19:53 Alkaline Phosphatase 209 U/L (46-116) H 09/06/24 19:53 Total Protein 6.6 g/dL (6.4-8.2) 09/06/24 19:53 Albumin 2.5 g/dL (3.4-5.0) L 09/06/24 19:53 Urine Opiates Screen Negative (Negative) 09/06/24 23:45 Urine Methadone Screen Negative (Negative) 09/06/24 23:45 Ur Barbiturates Screen Negative (Negative) 09/06/24 23:45 Ur Tricyclics Screen Negative (Negative) 09/06/24 23:45 Ur Amphetamines Screen Negative (Negative) 09/06/24 23:45 U Benzodiazepines Scrn Negative (Negative) 09/06/24 23:45 Urine Cocaine Screen Negative (Negative) 09/06/24 23:45 Ur THC Screen Positive (Negative) A 09/06/24 23:45 ABO/Rh O Positive 09/06/24 19:53 Antibody Screen NEGATIVE 09/06/24 19:53 Vital Signs Reviewed: Yes Objective Narrative Objective Narrative: Bps 130-80s prior to this. Subjective Interval history since last seen: Pt has had 1 dose of misoprostol with resulting cramping but not too uncomfortable. She did not get a second dose due to uterine irritability. She was able to sleep some overnight. She denies headache, n/v. Feeling movement. No bleeding/LOF. Results Hemoglobin/Hematocrit: Hgb 12.4 g/dL (11.2-15.7) 09/06/24 19:53 Hct 36.4 % (36.0-46.0) 09/06/24 19:53 Abnormal Lab Findings: Abnormal Labs 09/06/24 09/06/24 19:53 23:45 Chloride 108 H Alkaline Phosphatase 209 H Albumin 2.5 L Ur THC Screen Positive A
[2024-09-07] MEDS: Oxytocin/Normal Saline 30 UNIT/500 ML BAG 2 UNITS IV (06:29)
[2024-09-07] MEDS: Lactated Ringers 1,000 ML 125 ML IV ×2 (06:30→14:37)
[2024-09-07] MEDS: Labetalol 100 MG TAB 200 MG PO ×2 (06:31→15:40)
--- NOTE | 2024-09-07 07:25 | ANES.PREOP_ITS ---
General Info Date of Service Date Performed: 09/07/24 Height: 5 ft 3 in Weight: 60.328 kg Body Mass Index (BMI): 23.6 Meds Allergies and Home Medications Allergies Allergy/AdvReac Type Severity Reaction Status Date / Time No Known Allergies Allergy Verified 08/31/24 13:05 Home Medication ?Medication ?Instructions ?Recorded PNV 153-FA 400 mcg-om3 35 mg-dha 2 tab PO DAILY 03/09/24 25 mg-epa 5 mg-fish oil chew tablet ( Gummies) Current Visit Medications: Current Medications Generic Name Dose Route Start Last Admin Trade Name Freq PRN Reason Stop Dose Admin Ringer's Solution 1,000 mls @ 200 mls/hr 09/04/24 14:15 09/07/24 06:30 IV 125 mls/hr INFUSION CHICO Administration Oxytocin/Sodium Chloride 30 unit in 500 mls @ 2 mls/hr 09/07/24 06:15 09/07/24 06:29 Pitocin/Normal Saline IV 2 milliunits/min INFUSION CHICO 2 mls/hr Administration Protocol 2 MILLIUNITS/MIN IV Miscellaneous Supplies 1 each 09/04/24 14:15 09/07/24 05:18 Iv Access IV 1 each DIRECTED CHICO Administration Labetalol HCl 200 mg 09/07/24 06:30 Labetalol 100 Mg Tab PO BID CHICO Sodium Chloride 0 ml 09/04/24 20:00 09/07/24 07:13 Normal Saline Flush 10 Ml Syr IVP Not Given BID CHICO Terbutaline Sulfate 0.25 mg 09/04/24 14:01 Terbutaline 1 Mg/Ml Vial SC PRN PRN PFSH Active Problems Active Problems: Problem Status Onset Code Placenta succenturiata in third trimester Acute O43.193 Symmetrical growth restriction Acute P05.9 Pre-eclampsia Acute O14.90 Maternal varicella, non-immune Acute O09.899, Z28.39 Marijuana use Acute F12.90 Anxiety Chronic F41.9 Acute Z34.90 Medical History Medical History (Updated 09/07/24 @ 06:17 by Vicky Escalante MD) Family history of drug use ADHD Ovarian cyst, right declined f/u sono Hx of prematurity Born at 34 weeks Tibial torsion Tobacco Smoking/Tobacco Use Status: Never Substance Use Substance use: Never Substance use type: marijuana Prental History History 2 1 Para 0 Hx # Term Pregnancies 0 Multiple births Hx # Pregnancies Ectopic pregnancies AB induced Hx Number of Living Children AB spontaneous Vital Signs and Lab Results Vital Signs Most Recent Vital Signs in EMR: Most Recent Vital Signs Temp Pulse Resp BP 36.8 C 60 16 141/89 H 09/06/24 23:43 09/07/24 06:27 09/06/24 19:54 09/07/24 06:27 Lab Results 09/06/24 19:53 09/06/24 19:53 Blood Type / Crossmatch: 2 Antibody Screen NEGATIVE 09/06/24 Complete Blood Count: 2 White Blood Count 8.43 10^3/uL (4.4-10.8) 09/06/24 19:53 Red Blood Count 4.05 10^6/uL (3.93-5.22) 09/06/24 19:53 Hemoglobin 12.4 g/dL (11.2-15.7) 09/06/24 19:53 Hematocrit 36.4 % (36.0-46.0) 09/06/24 19:53 Platelet Count 211 10^3/uL (130-400) 09/06/24 19:53 Complete Metabolic Panel: 2 Sodium 141 mmol/L (136-145) 09/06/24 19:53 Potassium 3.8 mmol/L (3.5-5.1) 09/06/24 19:53 Chloride 108 mmol/L (98-107) H 09/06/24 19:53 Carbon Dioxide 22.1 mmol/L (21.0-32.0) 09/06/24 19:53 BUN 11 mg/dL (7-18) 09/06/24 19:53 Creatinine 0.8 mg/dL (0.55-1.02) 09/06/24 19:53 Est GFR (CKD-EPI 2020) 107.44 (mL/min/1.73m2) 09/06/24 19:53 Calcium 8.8 mg/dL (8.5-10.1) 09/06/24 19:53 Albumin 2.5 g/dL (3.4-5.0) L 09/06/24 19:53 Glucose 89 mg/dL (74-106) 09/06/24 19:53 Liver Function Panel: 2 Alanine Aminotransferase (ALT/SGPT) 26 U/L (14-59) 09/06/24 19: 53 Aspartate Amino Transf (AST/SGOT) 18 U/L (15-37) 09/06/24 19:53 Coagulation Panel: 2 No Data to Display Cardiac Panel: 2 No Data to Display Arterial Blood Gas: 2 No Data to Display Venous Blood Gas: 2 No Data to Display Pancreas Panel: 2 No Data to Display Thyroid Panel: 2 No Data to Display Infectious Disease: 2 No Data to Display Blood Cultures: 2 No Data to Display Toxicology Panel: 2 Urine Amphetamines Screen Negative (Negative) 09/06/24 23:45 Urine Benzodiazepines Screen Negative (Negative) 09/06/24 23:4 5 Urine Barbiturates Screen Negative (Negative) 09/06/24 23:45 Urine Cocaine Screen Negative (Negative) 09/06/24 23:45 Urine Methadone Screen Negative (Negative) 09/06/24 23:45 Urine Opiates Screen Negative (Negative) 09/06/24 23:45 Ur Tricyclic Antidepressants Screen Negative (Negative) 23:45 Ur Tetrahydrocannabinol (THC) Scrn Positive (Negative) A 09/06 23:45 Panel: 2 No Data to Display Anesthesia Assessment and Plan Anesthesia History Personal History: No History of Anesthesia Complications Family History: No Family History of Anesthesia Complications Exercise Tolerance Exercise Tolerance: Metabolic Equivalents>4 Cardiac & Pulmonary Exam Cardiac Exam: Normal S1/S2 Heart Sounds Pulmonary Exam: Clear Bilateral Breath Sounds Implantable Cardiac Device Does patient have a Pacemaker or an ICD?: No Airway Exam Known Difficult Airway: No Mallampati Class: 2 Mouth Opening: Normal (> 3cm) Thyromental Distance: Greater than 3 cm Neck Range of Motion: Full ROM Neck Circumference: Normal Teeth Condition: Normal Dentition ASA Classification ASA Score: ASA 1 Emergency Case?: No NPO Status NPO Status: NPO Clears >2 hours, Solids >8 hours Status Status: Confirmed Anesthesia Plan Resuscitation Status: Full Code Anesthesia Technique: Epidural Anesthesia Airway Planned: Natural Airway Pain Management: Epidural Monitors Used: Standard Monitors Preoperative Comments:: 19 yo 37 wk G1 for IOL due to pre-eclampsia. Has had miso, being started on pit. Getting labetalol. Sig PMHx: ADHD/anxiety. occ cannabis. No home meds. + gHTN - asthma placenta succenturiate plt 211 Currently just started on Pitocin. She is unsure if she would like an epidural, but is interested in talking about it. We went over the process of epidural placement, risks of placement, and what to expect after. Her questions were answered and she will call if she has any further questions or is she would like an epidural.
[2024-09-07] MEDS: Penicillin G POT. 5,000,000 UNITS in Normal Saline 100 ML 200 UNITS IVPB (10:20)
[2024-09-07] MEDS: FentaNYL/ROPIvacaine 2 mcg/ml and 0.1% 200 ML CADD Cassette EP (14:20)
--- NOTE | 2024-09-07 14:26 | W.PM.OBNL1 ---
Date of service: 09/07/24 Time of Service: 13:00 Pelvic Exam Dilation: 3 Effacement (%): 80 station: -1 Cervix Position: mid Fetus A Heart Rate Baseline: 120 Presentation: Vertex Variability: Moderate (6-25 BPM) Categories: Category I Accelerations: 15 X 15 Decelerations: None Amniotic Membrane Status: Ruptured Rupture Method: Artifical Amniotic Fluid: Clear Assessment and Plan Assessment and plan (1) Pre-eclampsia: Status: Acute Assessment and plan: P0 @37wks undergoing induction for PEC. BPs have been mildly elevated but managed with PO meds. She has been asymptomatic with normal labs. S/p AROM - clear fluid. Pit at 8mU - will continue this. Objective Abnormal lab results 09/06/24 09/06/24 Range/Units 19:53 23:45 Chloride 108 H (98-107) mmol/L Alkaline Phosphatase 209 H (46-116) U/L Albumin 2.5 L (3.4-5.0) g/dL Ur THC Screen Positive A (Negative) Temp Pulse Resp BP Pulse Ox 98.2 F 57 L 18 165/107 H 100 09/07/24 08:04 09/07/24 14:25 09/07/24 08:04 09/07/24 14:23 09/07/24 14:25 Laboratory Results WBC 8.43 10^3/uL (4.4-10.8) 09/06/24 19:53 RBC 4.05 10^6/uL (3.93-5.22) 09/06/24 19:53 Hgb 12.4 g/dL (11.2-15.7) 09/06/24 19:53 Hct 36.4 % (36.0-46.0) 09/06/24 19:53 MCV 90 fL (80-95) 09/06/24 19:53 MCH 30.6 pg (27.0-33.0) 09/06/24 19:53 MCHC 34.1 % (32.0-36.0) 09/06/24 19:53 RDW 12.5 % (11.7-14.6) 09/06/24 19:53 Plt Count 211 10^3/uL (130-400) 09/06/24 19:53 MPV fL (8.0-11.0) 09/06/24 19:53 Sodium 141 mmol/L (136-145) 09/06/24 19:53 Potassium 3.8 mmol/L (3.5-5.1) 09/06/24 19:53 Chloride 108 mmol/L (98-107) H 09/06/24 19:53 Carbon Dioxide 22.1 mmol/L (21.0-32.0) 09/06/24 19:53 Anion Gap 10.9 mmol/L (3-11) 09/06/24 19:53 BUN 11 mg/dL (7-18) 09/06/24 19:53 Creatinine 0.8 mg/dL (0.55-1.02) 09/06/24 19:53 Est GFR (CKD-EPI 2020) 107.44 (mL/min/1.73m2) 09/06/24 19:53 Glucose 89 mg/dL (74-106) 09/06/24 19:53 Calcium 8.8 mg/dL (8.5-10.1) 09/06/24 19:53 Total Bilirubin 0.2 mg/dL (0.2-1.0) 09/06/24 19:53 AST 18 U/L (15-37) 09/06/24 19:53 ALT 26 U/L (14-59) 09/06/24 19:53 Alkaline Phosphatase 209 U/L (46-116) H 09/06/24 19:53 Total Protein 6.6 g/dL (6.4-8.2) 09/06/24 19:53 Albumin 2.5 g/dL (3.4-5.0) L 09/06/24 19:53 Urine Opiates Screen Negative (Negative) 09/06/24 23:45 Urine Methadone Screen Negative (Negative) 09/06/24 23:45 Ur Barbiturates Screen Negative (Negative) 09/06/24 23:45 Ur Tricyclics Screen Negative (Negative) 09/06/24 23:45 Ur Amphetamines Screen Negative (Negative) 09/06/24 23:45 U Benzodiazepines Scrn Negative (Negative) 09/06/24 23:45 Urine Cocaine Screen Negative (Negative) 09/06/24 23:45 Ur THC Screen Positive (Negative) A 09/06/24 23:45 ABO/Rh O Positive 09/06/24 19:53 Antibody Screen NEGATIVE 09/06/24 19:53 Vital Signs Reviewed: Yes Subjective Interval history since last seen: Pt with mild ctxs. Results Hemoglobin/Hematocrit: Hgb 12.4 g/dL (11.2-15.7) 09/06/24 19:53 Hct 36.4 % (36.0-46.0) 09/06/24 19:53 Abnormal Lab Findings: Abnormal Labs 09/06/24 09/06/24 19:53 23:45 Chloride 108 H Alkaline Phosphatase 209 H Albumin 2.5 L Ur THC Screen Positive A
[2024-09-07] MEDS: Penicillin G POT. 3,000,000 UNITS in Normal Saline 50 ML 100 UNITS IVPB (14:36)
--- NOTE | 2024-09-07 14:44 | ANES.NEUR_ITS ---
Epidural/Spinal Catheter Date Performed: 09/07/24 Procedure Start: 14:09 Procedure Stop: 14:13 Requesting Provider: Vicky Escalante Procedure Location: Obstetrics Reason Performed: Labor Epidural Standard Monitors Applied: Blood Pressure and SpO2 Patient Position: Sitting Sedation Given (Indicate Dose Given): No Sedation given Patient Mental Status: Awake Sterility: Hand Hygiene, Surgical Cap, Surgical Mask, Sterile Gloves, Sterile Drape/Sheet and Chlorhexidine Procedure Location: L2-L3 Interspace Epidural Needle: Tuohy 17 Guage Needle Length: 3.5 Inch Needle Approach: Midline Epidural Procedure: 1% Lidocaine to skin and subcutaneous tissue with 25G needle and RASHAUN to Saline Used Catheter Placed?: Catheter Placed (wire reinforced. ) Test Dose (Indicate Dose G iven): 3ml 1.5% Lidocaine with 1:200K Epinephrine Given Loss of Resistance Depth (cm): 5 Catheter depth at skin (cm): 10 Dressing: Sorbaview Dressing Placed, Mastisol Used and Dressing reinforced with Tape Epidural Provider Bolus (Indicate Dose Given): Total Ropivacaine 0.1% with Fentanyl 2mcg/ml Given from pump. (ml) (7 mL + 5 mL) Dose:: 12 mL Additives (Indicate Dose Given ): None Infusion Medication: Medication Infusion Began Medication Infusion: Ropivacaine 0.1% with Fentanyl 2mcg/ml Maintenance Infusion Rate (ml/hour): 10 PCEA Bolus Dose (ml): 5 Block Level: N/A Paresthesia: None Ultrasound: Used to nanci site (depth noted at 4.8 cm. ) Number of Attempts (See previous attempts in note section): 1 Procedure Tolerated: No Complications Procedure Outcome: Successful Performed By: Randall Cheema
--- NOTE | 2024-09-07 15:38 | W.PM.OBNL1 ---
Date of service: 09/07/24 Time of Service: 15:00 Fetus A Variability: Moderate (6-25 BPM) Categories: Category I Accelerations: 15 X 15 Decelerations: Early Assessment and Plan Assessment and plan (1) Pre-eclampsia: Status: Acute Assessment and plan: P0 undergoing induction for PEC with IUGR who experienced intermittent severe range BPs with quick onset of ctxs s/p AROM. This continued during the process of epidural placement but improved s/p adequate pain relief. She continues to have BPs in the upper mild range and therefore will be given a PO dose of Labetalol as it has been about 10hrs since her last dose. FHT reassuring. Pt is now comfortable and remains asymptomatic with regular ctxs. Objective Abnormal lab results 09/06/24 09/06/24 Range/Units 19:53 23:45 Chloride 108 H (98-107) mmol/L Alkaline Phosphatase 209 H (46-116) U/L Albumin 2.5 L (3.4-5.0) g/dL Ur THC Screen Positive A (Negative) Temp Pulse Resp BP Pulse Ox 97.7 F 59 L 18 159/90 H 99 09/07/24 15:00 09/07/24 15:29 09/07/24 15:00 09/07/24 15:29 09/07/24 15:00 Laboratory Results WBC 8.43 10^3/uL (4.4-10.8) 09/06/24 19:53 RBC 4.05 10^6/uL (3.93-5.22) 09/06/24 19:53 Hgb 12.4 g/dL (11.2-15.7) 09/06/24 19:53 Hct 36.4 % (36.0-46.0) 09/06/24 19:53 MCV 90 fL (80-95) 09/06/24 19:53 MCH 30.6 pg (27.0-33.0) 09/06/24 19:53 MCHC 34.1 % (32.0-36.0) 09/06/24 19:53 RDW 12.5 % (11.7-14.6) 09/06/24 19:53 Plt Count 211 10^3/uL (130-400) 09/06/24 19:53 MPV fL (8.0-11.0) 09/06/24 19:53 Sodium 141 mmol/L (136-145) 09/06/24 19:53 Potassium 3.8 mmol/L (3.5-5.1) 09/06/24 19:53 Chloride 108 mmol/L (98-107) H 09/06/24 19:53 Carbon Dioxide 22.1 mmol/L (21.0-32.0) 09/06/24 19:53 Anion Gap 10.9 mmol/L (3-11) 09/06/24 19:53 BUN 11 mg/dL (7-18) 09/06/24 19:53 Creatinine 0.8 mg/dL (0.55-1.02) 09/06/24 19:53 Est GFR (CKD-EPI 2020) 107.44 (mL/min/1.73m2) 09/06/24 19:53 Glucose 89 mg/dL (74-106) 09/06/24 19:53 Calcium 8.8 mg/dL (8.5-10.1) 09/06/24 19:53 Total Bilirubin 0.2 mg/dL (0.2-1.0) 09/06/24 19:53 AST 18 U/L (15-37) 09/06/24 19:53 ALT 26 U/L (14-59) 09/06/24 19:53 Alkaline Phosphatase 209 U/L (46-116) H 09/06/24 19:53 Total Protein 6.6 g/dL (6.4-8.2) 09/06/24 19:53 Albumin 2.5 g/dL (3.4-5.0) L 09/06/24 19:53 Urine Opiates Screen Negative (Negative) 09/06/24 23:45 Urine Methadone Screen Negative (Negative) 09/06/24 23:45 Ur Barbiturates Screen Negative (Negative) 09/06/24 23:45 Ur Tricyclics Screen Negative (Negative) 09/06/24 23:45 Ur Amphetamines Screen Negative (Negative) 09/06/24 23:45 U Benzodiazepines Scrn Negative (Negative) 09/06/24 23:45 Urine Cocaine Screen Negative (Negative) 09/06/24 23:45 Ur THC Screen Positive (Negative) A 09/06/24 23:45 ABO/Rh O Positive 09/06/24 19:53 Antibody Screen NEGATIVE 09/06/24 19:53 Vital Signs Reviewed: Yes Objective Narrative Objective Narrative: With increased pain her BPs elevated to severe range. She was in the process of receiving the epidural so the decision was made to hold off on IV treatment so as not to create post-epidural hypotension. After having several severe range BPs in a row, she would then have a lower one so IV meds were never given. Her BPs did lower overall after adequate pain management. They remained in the 140-150s/80-100. Subjective Interval history since last seen: Right after AROM, pt quickly progressed into regular close contractions. Pitocin was turned down to 4 and she requested an epidural. Pt is now comfortable with her epidural Results Hemoglobin/Hematocrit: Hgb 12.4 g/dL (11.2-15.7) 09/06/24 19:53 Hct 36.4 % (36.0-46.0) 09/06/24 19:53 Abnormal Lab Findings: Abnormal Labs 09/06/24 09/06/24 19:53 23:45 Chloride 108 H Alkaline Phosphatase 209 H Albumin 2.5 L Ur THC Screen Positive A
--- NOTE | 2024-09-07 17:32 | W.PM.OBNL1 ---
Date of service: 09/07/24 Time of Service: 17:32 Pelvic Exam Dilation: 9.5 Effacement (%): 100 station: +2 Fetus A Heart Rate Baseline: 120 Presentation: Vertex Variability: Moderate (6-25 BPM) Categories: Category I Accelerations: 15 X 15 Decelerations: None Amniotic Membrane Status: Ruptured Assessment and Plan Assessment and plan (1) Pre-eclampsia: Status: Acute Assessment and plan: P0 @37wks undergoing IOL for PEC. Pain well managed with epidural. Has developed higher BPs since onset of labor. Now with 2 severe range BPs in a row - will treat with IV labetalol x1 and repeat BP management prn. Pt remains asymptomatic. She has emptied her bladder and is likely fully dilated and ready to push. Objective Abnormal lab results 09/06/24 09/06/24 Range/Units 19:53 23:45 Chloride 108 H (98-107) mmol/L Alkaline Phosphatase 209 H (46-116) U/L Albumin 2.5 L (3.4-5.0) g/dL Ur THC Screen Positive A (Negative) Temp Pulse Resp BP Pulse Ox 98.2 F 63 18 162/110 H 99 09/07/24 16:49 09/07/24 17:30 09/07/24 16:00 09/07/24 17:30 09/07/24 15:00 Laboratory Results WBC 8.43 10^3/uL (4.4-10.8) 09/06/24 19:53 RBC 4.05 10^6/uL (3.93-5.22) 09/06/24 19:53 Hgb 12.4 g/dL (11.2-15.7) 09/06/24 19:53 Hct 36.4 % (36.0-46.0) 09/06/24 19:53 MCV 90 fL (80-95) 09/06/24 19:53 MCH 30.6 pg (27.0-33.0) 09/06/24 19:53 MCHC 34.1 % (32.0-36.0) 09/06/24 19:53 RDW 12.5 % (11.7-14.6) 09/06/24 19:53 Plt Count 211 10^3/uL (130-400) 09/06/24 19:53 MPV fL (8.0-11.0) 09/06/24 19:53 Sodium 141 mmol/L (136-145) 09/06/24 19:53 Potassium 3.8 mmol/L (3.5-5.1) 09/06/24 19:53 Chloride 108 mmol/L (98-107) H 09/06/24 19:53 Carbon Dioxide 22.1 mmol/L (21.0-32.0) 09/06/24 19:53 Anion Gap 10.9 mmol/L (3-11) 09/06/24 19:53 BUN 11 mg/dL (7-18) 09/06/24 19:53 Creatinine 0.8 mg/dL (0.55-1.02) 09/06/24 19:53 Est GFR (CKD-EPI 2020) 107.44 (mL/min/1.73m2) 09/06/24 19:53 Glucose 89 mg/dL (74-106) 09/06/24 19:53 Calcium 8.8 mg/dL (8.5-10.1) 09/06/24 19:53 Total Bilirubin 0.2 mg/dL (0.2-1.0) 09/06/24 19:53 AST 18 U/L (15-37) 09/06/24 19:53 ALT 26 U/L (14-59) 09/06/24 19:53 Alkaline Phosphatase 209 U/L (46-116) H 09/06/24 19:53 Total Protein 6.6 g/dL (6.4-8.2) 09/06/24 19:53 Albumin 2.5 g/dL (3.4-5.0) L 09/06/24 19:53 Urine Opiates Screen Negative (Negative) 09/06/24 23:45 Urine Methadone Screen Negative (Negative) 09/06/24 23:45 Ur Barbiturates Screen Negative (Negative) 09/06/24 23:45 Ur Tricyclics Screen Negative (Negative) 09/06/24 23:45 Ur Amphetamines Screen Negative (Negative) 09/06/24 23:45 U Benzodiazepines Scrn Negative (Negative) 09/06/24 23:45 Urine Cocaine Screen Negative (Negative) 09/06/24 23:45 Ur THC Screen Positive (Negative) A 09/06/24 23:45 ABO/Rh O Positive 09/06/24 19:53 Antibody Screen NEGATIVE 09/06/24 19:53 Vital Signs Reviewed: Yes Objective Narrative Objective Narrative: Severe range BP x2. Subjective Interval history since last seen: Pt still comfortable with epidural. Denies headache or visual changes. Feels some pelvic pressure. Results Hemoglobin/Hematocrit: Hgb 12.4 g/dL (11.2-15.7) 09/06/24 19:53 Hct 36.4 % (36.0-46.0) 09/06/24 19:53 Abnormal Lab Findings: Abnormal Labs 09/06/24 09/06/24 19:53 23:45 Chloride 108 H Alkaline Phosphatase 209 H Albumin 2.5 L Ur THC Screen Positive A
[2024-09-07] MEDS: Labetalol 100 MG/20 ML VIAL 20 MG IVP (17:35)
--- NOTE | 2024-09-07 18:06 | PLAC_PTH ---
PATIENT: Sidney Deshpande LOC: OBS U#:[id number] AGE/SX: 19/F ROOM: OBS.301 RE09/06/[address]: Vicky Escalante MD : 2005 BED: A DIS: 09/10/2024 SPEC #: [id number] RECD: 09/08/24 12:21 STATUS: JEFFERY REQ #: [id number] ROSALINA: 09/07/24 18:[address]: Vicky Escalante DEPT: Surgical Specimen RECD BY: Theresa Awan Tissues: 1 - PLACENTA (3RD TRIMESTER) Procedures: IMMUNOPEROXIDASE STAIN GROSS AND MICRO LEVEL 5 Comments: [id number]
--- NOTE | 2024-09-07 19:04 | OBVDS_ITS ---
Date of service: 09/07/24 Time of Service: 18:00 OB Labor/ Delivery Information Baby A Delivery Delivery Method: Spontaneaous Presentation: Vertex Vertex Position: Right Occipital Anterior Cord Description-Baby A: 3 Vessels Amniotic Fluid: Clear Estimated Blood Loss: 150 Delivery Outcome: Liveborn Providers Doctor: Vicky Escalante Workplace Trainer And Assessor: Randall Cheema Nurse: Augusta Emmanuel Nurse: Lori Gibson Labor/Delivery Information Number of Babies in Womb: 1 Steroids Given: None Reason Steroids Not Administered: N/A Group Beta Strep: Positive Antibiotics Administered: Yes Number of Doses of Antibiotics: 2 Rubella Status: Immune Blood Type: O+ Varicella Immunity: Nonimmune Shoulder Dystocia: No Note: The pt was found to be fully dilated. She pushed 10 mins to deliver the infant's head in MINDA position followed by the shoulders and the rest of the body through a loose cord. The baby was placed on mom's abdomen and was vigorous. After >1min the cord was clamped x2 and cut. Cord blood collected. The placenta delivered with gentle cord traction and fundal massage and appeared intact with an accessory lobe. 2 vaginal abrasions were repaired with 4-0 vicryl [id number] sutures. Fundus was firm with good hemostasis. Mom and baby stable at time of note. Stages of Labor Onset of Labor Date: 09/06/24 Onset of Labor Time: 20:15 Complete Dilatation Date: 09/07/24 Complete Dilatation Time: 17:46 Labor - Stage 1 Duration: 21 hours and 31 minutes ROM Baby A: 09/07/24 ROM Baby A: 12:58 ROM Total Time- Baby A: [id number] Infant Delivery Date-Baby A: 09/07/24 Infant Delivery Time-Baby A: 17:57 Labor Stage 2 Duration: 11 minutes Placenta Delivery Date-Baby A: 09/07/24 Placenta Delivery Time-Baby A: 18:06 Labor-Stage 3 Duration: 9 minutes Total Length of Labor-Baby A: 21 hours and 42 minutes Placenta Status: Delivered Baby A Gender: Female Gestational Status: Early Term (37-38.6 wks) Gestational Age in Weeks/Days: 37 Weeks and 1 Days Score-1 Minute Interval(Baby A) Heart Rate-1 minute: 100 BPM or Greater Respiratory Effort- 1 minute: Spontaneous/Strong Cry Muscle Tone-1 minute: Active Movement Reflex Response-1 minute: Prompt Response Color-1 minute: Pallor or Cyanosis Total Score-1 minute: 8 Score-5 Minute Interval(Baby A) Heart Rate- 5 minute: 100 BPM or Greater Respiratory Effort-5 minute: Spontaneous/Strong Cry Muscle Tone-5 minute: Active Movement Reflex Response-5 minute: Prompt Response Color-5 minute: Bluish Hands or Feet Total Score- 5 minute: 9
[2024-09-07 19:31] LABS: HGB 12.6 g/dL (11.2-15.7); MCH 30.5 pg (27.0-33.0); MCHC 34.1 % (32.0-36.0); MCV 90 fL (80-95); Platelet Count 227 10^3/uL (130-400); RBC 4.13 10^6/uL (3.93-5.22); RDW 12.6 % (11.7-14.6); RDW-SD 41.1 fL; WBC 15.09 10^3/uL (4.4-10.8)
[2024-09-07] MEDS: MAGNESIUM SULFATE 20 GM/500 ML BAG IV_INF (19:40)
[2024-09-07 19:44] LABS: ALT 25 U/L (14-59); AST 23 U/L (15-37); Albumin 2.4 g/dL (3.4-5.0); Alkaline Phosphatase 203 U/L (46-116); Anion Gap 12.1 mmol/L (3-11); BUN 8 mg/dL (7-18); Bilirubin, Total 0.4 mg/dL (0.2-1.0); CO2 22.9 mmol/L (21.0-32.0); CREATININE 0.7 mg/dL (0.55-1.02); Calcium 8.7 mg/dL (8.5-10.1); Chloride 106 mmol/L (98-107); Estimated GFR 126.11 (mL/min/1.73m2); Glucose 74 mg/dL (74-106); Potassium 3.9 mmol/L (3.5-5.1); Sodium 141 mmol/L (136-145); Total Protein 6.3 g/dL (6.4-8.2)
[2024-09-08] VITALS (40 sets, daily range): BP systolic 117–175; BP diastolic 60–113; PULSE 67–89; RESP 16; TEMP 36.4–36.9; O2SAT 96–98
--- NOTE | 2024-09-08 05:49 | W.PM.OBPNV1 ---
Date of service: 09/08/24 Time of Service: 05:50 Assessment and Plan Assessment and plan (1) Pre-eclampsia: Status: Acute Assessment and plan: P1 PPD #1 s/p NVD of 37wk due to FGR and PEC. Started mag immediately for severe range BPs. The BPs stablized without other medications and were 130-150s/70-90s overnight until just now. She remains asymptomatic and had normal labs last evening. Will plan to give her a first dose of nifedipine now and continue to monitor BPs. Repeat labs pending this am including mag level. Pt is aware she will be staying until tomorrow. Subjective Subjective Narrative: Pt is tired but feels well overall. Had a mild headache at one point but it's gone now. No significant pain. Minimal lochia. Baby is breast-feeding and doing well. Exam Physical Exam Vital signs: Temp Pulse Resp BP Pulse Ox 98.1 F 72 18 160/108 H 97 09/07/24 18:40 09/08/24 05:37 09/07/24 18:00 09/08/24 05:37 09/08/24 04:26 Vital Signs Reviewed: Yes Narrative: BPs mostly 130-140s/70-90s and are just recently elevated. Constitutional Constitutional: no acute distress and cooperative Detailed HEENT Exam Head: Present normocephalic and atraumatic Respiratory Exam Respiratory Exam: Normal Abdominal Exam Abdomen: Tender (mildly) Fundal Exam Fundus: Below Umbilicus and Firm Extremities Exam Extremity Exam: negative Calf Tenderness or Edema Comment: 2/3+ DTRs on L/R Detailed Neurological Exam Neurological: Present alert, oriented X3 and CN II-XII intact Results Hemoglobin/Hematocrit: Hgb 12.6 g/dL (11.2-15.7) 09/07/24 19:21 Hct 37.0 % (36.0-46.0) 09/07/24 19:21 Abnormal Lab Findings: Abnormal Labs 09/06/24 09/06/24 09/07/24 19:53 23:45 19:21 WBC 15.09 H MPV 13.0 H Chloride 108 H Anion Gap 12.1 H Alkaline Phosphatase 209 H 203 H Total Protein 6.3 L Albumin 2.5 L 2.4 L Ur THC Screen Positive A Additional Findings Results: Out-put >3500 (missed the hat once) Ins:<3000
[2024-09-08] MEDS: MAGNESIUM SULFATE 20 GM/500 ML BAG IV_INF ×2 (05:55→23:31)
[2024-09-08 07:01] LABS: HCT 35.6 % (36.0-46.0); HGB 12.3 g/dL (11.2-15.7); MCH 30.9 pg (27.0-33.0); MCHC 34.6 % (32.0-36.0); MCV 89 fL (80-95); MPV 12.7 fL (8.0-11.0); Platelet Count 184 10^3/uL (130-400); RBC 3.98 10^6/uL (3.93-5.22); RDW 12.3 % (11.7-14.6); RDW-SD 40.1 fL; WBC 10.04 10^3/uL (4.4-10.8)
[2024-09-08 07:16] LABS: ALT 23 U/L (14-59); AST 29 U/L (15-37); Albumin 2.3 g/dL (3.4-5.0); Alkaline Phosphatase 188 U/L (46-116); Anion Gap 8.2 mmol/L (3-11); BUN 4 mg/dL (7-18); Bilirubin, Total 0.3 mg/dL (0.2-1.0); CO2 24.8 mmol/L (21.0-32.0); CREATININE 0.6 mg/dL (0.55-1.02); Calcium 7.9 mg/dL (8.5-10.1); Chloride 108 mmol/L (98-107); Estimated GFR 130.88 (mL/min/1.73m2); Glucose 86 mg/dL (74-106); Potassium 3.8 mmol/L (3.5-5.1); Sodium 141 mmol/L (136-145); Total Protein 6.2 g/dL (6.4-8.2)
[2024-09-08 07:19] LABS: Magnesium 5.6 mg/dL (1.8-2.4)
[2024-09-08] MEDS: NIFEdipine-CR 30 MG TABCR PO ×2 (07:39→17:00)
[2024-09-08] MEDS: Dibucaine 1% 28 GM TUBE TP (07:40)
[2024-09-08] MEDS: Hamamelis Leaf/Glycerin 100 EACH BOX PR (07:40)
[2024-09-08] MEDS: Acetaminophen 325 MG TAB 650 MG PO (07:40)
--- NOTE | 2024-09-08 07:48 | W.ANESPOSTOP ---
Postoperative Evaluation Date, Time and Location Date Performed: 09/08/24 Time Performed: 06:45 Patient Location: Obstetrics Vital Signs Most Recent Imported Vital Signs: Most Recent Vital Signs Temp Pulse Resp BP Pulse Ox 36.7 C 70 18 136/98 H 97 09/07/24 18:40 09/08/24 07:20 09/07/24 18:00 09/08/24 07:20 09/08/24 04:26 Assessment Mental Status: Awake (Alert & Oriented to Patient Baseline) Airway and Respiratory Function: Patent airway with normal (patient baseline) respiratory exam Cardiovascular Function: Hemodynamically Stable Hydration Status: Adequately Hydrated Nausea & Vomiting: No Nausea or Vomiting Pain: Pain is tolerable per patient Peripheral Nerve Block: Patient did not receive a nerve block
[2024-09-08] MEDS: Lactated Ringers 1,000 ML 75 ML IV ×2 (09:31→21:46)
[2024-09-08] MEDS: Labetalol 100 MG/20 ML VIAL 20 MG IVP ×3 (10:45→20:21)
--- NOTE | 2024-09-08 10:58 | W.PM.OBPNV1 ---
Date of service: 09/08/24 Time of Service: 10:58 Assessment and Plan Assessment and plan (1) Pre-eclampsia: Status: Acute Assessment and plan: Preeclampsia with severe features. On magnesium sulfate for seizure prophylaxis. Will continually monitor urine output. Severe range pressures this morning. Received Procardia XL x 1, 30 mg. Subsequent dose of labetalol, 20 mg IV given recently. Will reevaluate shortly. Continue to monitor closely. (2) (normal spontaneous vaginal delivery): Status: Acute Subjective Subjective Interval history: Patient seen and examined this morning. I was called for severe range blood pressures of 170/108. She is currently on magnesium sulfate with a magnesium level that was previously greater than 5. For this reason she was 2 down to 1 g/h. She has a bedside commode for urine output which has been reasonably appropriate. She had a mild headache this morning which responded well to Tylenol. She has no visual changes or epigastric pain. She is not feeling lightheaded or dizzy. She has no visual changes. In addition to her 30 mg of Procardia XL which she received this morning, she received 20 mg of labetalol IV push for her severe range blood pressure. This will be rechecked in approximately 15 minutes post treatment. We discussed the fact that it is very important that we monitor accurately her POONAM. She will continue to use a bedside commode at this point, though Leonard catheter is not out of the question. Mag level was repeated this morning. Will continue to monitor closely her blood pressures, and treat severe range pressure when indicated. Exam Physical Exam Vital signs: Temp Pulse Resp BP Pulse Ox 97.5 F L 78 16 168/100 H 98 09/08/24 10:05 09/08/24 10:45 09/08/24 10:05 09/08/24 10:45 09/08/24 10:05 Vital Signs Reviewed: Yes Notable Details: Severe range pressures. Received 20 mg of labetalol IV, will recheck Constitutional Constitutional: no acute distress Neck Exam Neck Exam: Normal Respiratory Exam Respiratory Exam: Normal Cardiovascular Exam Cardiovascular Exam: Normal Abdominal Exam Comments: Soft, nontender Fundal Exam Fundus: Below Umbilicus and Firm Extremities Exam Extremity Exam: negative Calf Tenderness or Edema Comment: DTRs 3/4 symmetric, bilaterally, no clonus Detailed Neurological Exam Neurological: Present alert, oriented X3 and normal tone; Absent sensory deficit, motor deficit or clonus Results Hemoglobin/Hematocrit: Hgb 12.3 g/dL (11.2-15.7) 09/08/24 06:48 Hct 35.6 % (36.0-46.0) L 09/08/24 06:48 Abnormal Lab Findings: Abnormal Labs 09/06/24 09/06/24 09/07/24 19:53 23:45 19:21 WBC 15.09 H Hct MPV 13.0 H Chloride 108 H Anion Gap 12.1 H BUN Calcium Magnesium Alkaline Phosphatase 209 H 203 H Total Protein 6.3 L Albumin 2.5 L 2.4 L Ur THC Screen Positive A 09/08/24 06:48 WBC Hct 35.6 L MPV 12.7 H Chloride 108 H Anion Gap BUN 4 L Calcium 7.9 L Magnesium 5.6 H* Alkaline Phosphatase 188 H Total Protein 6.2 L Albumin 2.3 L Ur THC Screen
[2024-09-08 11:13] LABS: Magnesium 5.1 mg/dL (1.8-2.4)
[2024-09-08 11:50] LABS: Fentanyl Scr w/Rfx Confirm Negative ng/mL (<1)
--- NOTE | 2024-09-08 17:02 | W.PM.OBPNV1 ---
Date of service: 09/08/24 Time of Service: 17:03 Subjective Subjective Interval history: Patient seen and examined this afternoon. We do lengthy conversation regarding hypertension, antihypertensives, magnesium prophylaxis for preeclampsia with severe features. At this point, in light of the fact that her blood pressures are somewhat labile, she will continue on her magnesium sulfate. She is having good urinary output which ranges from 325 to 800 cc/h. She has no cephalgia, visual changes, epigastric discomfort. She did receive Procardia XL 30 mg this morning. She received a dose of labetalol 20 mg IV for severe range blood pressure midmorning. Up until this afternoon, her pressures had remained relatively stable. Her most recent blood pressure was 175/113 with no additional symptomatology. She received a second dose of Procardia XL and 20 mg of labetalol and we will recheck her blood pressure in approximately 20 minutes. All of these findings were discussed with the patient at length today. At this point, she will continue her magnesium, careful observation of her blood pressure and accurate I's and O's. She will repeat laboratory studies in the morning including CBC and a CMP. Her mag level for the afternoon is currently pending. Exam Physical Exam Vital signs: Temp Pulse Resp BP Pulse Ox 98.4 F 79 16 175/113 H 96 09/08/24 16:00 09/08/24 16:00 09/08/24 16:00 09/08/24 17:01 09/08/24 16:00 Results Hemoglobin/Hematocrit: Hgb 12.3 g/dL (11.2-15.7) 09/08/24 06:48 Hct 35.6 % (36.0-46.0) L 09/08/24 06:48 Abnormal Lab Findings: Abnormal Labs 09/06/24 09/06/24 09/07/24 19:53 23:45 19:21 WBC 15.09 H Hct MPV 13.0 H Chloride 108 H Anion Gap 12.1 H BUN Calcium Magnesium Alkaline Phosphatase 209 H 203 H Total Protein 6.3 L Albumin 2.5 L 2.4 L Ur THC Screen Positive A 09/08/24 09/08/24 06:48 10:45 WBC Hct 35.6 L MPV 12.7 H Chloride 108 H Anion Gap BUN 4 L Calcium 7.9 L Magnesium 5.6 H* 5.1 H* Alkaline Phosphatase 188 H Total Protein 6.2 L Albumin 2.3 L Ur THC Screen
[2024-09-08 17:35] LABS: Magnesium 4.4 mg/dL (1.8-2.4)
[2024-09-08] MEDS: Labetalol 100 MG TAB 200 MG PO (21:40)
[2024-09-08 23:16] LABS: Magnesium 3.8 mg/dL (1.8-2.4)
[2024-09-09] VITALS (10 sets, daily range): BP systolic 124–149; BP diastolic 71–95; PULSE 68–90; RESP 16–18; TEMP 36.6–37.5; O2SAT 97–99
[2024-09-09 04:15] LABS: Abs Immature Grans 0.02 10^3/uL (0.0-0.06); Absolute Basophil Count 0.04 10^3/uL (0.0-0.2); Absolute Eosinophil Count 0.12 10^3/uL (0.0-0.7); Absolute Lymphocyte Count 1.38 10^3/uL (1.2-3.4); Absolute Neutrophil Count 6.46 10^3/uL (1.2-6.7); Basophils % 0.5 %; Eosinophils % 1.4 %; Immature Grans % 0.2 %; Lymphocytes % 15.8 %; MCH 30.2 pg (27.0-33.0); MCHC 33.3 % (32.0-36.0); MCV 91 fL (80-95); MPV 12.4 fL (8.0-11.0); Neutrophils % 74.1 %; Platelet Count 193 10^3/uL (130-400); RBC 3.97 10^6/uL (3.93-5.22); RDW 12.6 % (11.7-14.6); RDW-SD 41.4 fL; WBC 8.72 10^3/uL (4.4-10.8)
[2024-09-09 04:30] LABS: ALT 33 U/L (14-59); AST 37 U/L (15-37); Albumin 2.4 g/dL (3.4-5.0); Alkaline Phosphatase 190 U/L (46-116); BUN 4 mg/dL (7-18); Bilirubin, Total 0.4 mg/dL (0.2-1.0); CREATININE 0.6 mg/dL (0.55-1.02); Calcium 8.2 mg/dL (8.5-10.1); Chloride 103 mmol/L (98-107); Estimated GFR 130.88 (mL/min/1.73m2); Glucose 85 mg/dL (74-106); Sodium 140 mmol/L (136-145); Total Protein 6.4 g/dL (6.4-8.2)
[2024-09-09] MEDS: Labetalol 100 MG TAB 200 MG PO ×2 (08:30→20:17)
[2024-09-09] MEDS: NIFEdipine-CR 30 MG TABCR PO ×2 (08:30→20:18)
[2024-09-09] MEDS: Normal Saline Flush 10 ML SYR IVP ×2 (08:31→20:18)
--- NOTE | 2024-09-09 08:36 | W.PM.OBPNV1 ---
Date of service: 09/09/24 Time of Service: 08:00 Assessment and Plan Assessment and plan (1) Pre-eclampsia: Status: Acute Assessment and plan: BPs were rather labile during the day yesterday but overnight they have been more stable. She is on Procardia 30XL BID and Labetalol 200mg PO BID. Magnesium is now off. Labs remained normal this am and she remains asymptomatic. Will continue to monitor BPs throughout the day. If stable, she should be able to d/c tomorrow am. (2) (normal spontaneous vaginal delivery): Status: Acute Subjective Subjective Narrative: Pt got a little more sleep last night. Denies headache. No n/v. Tolerating PO diet well. Minimal lochia. OOB without difficulty. Some struggling with breast-feeding but feeling ok overall. Mag just turned off this am. Exam Physical Exam Vital signs: Temp Pulse Resp BP Pulse Ox 97.9 F 86 16 136/90 97 09/09/24 07:00 09/09/24 08:28 09/09/24 07:00 09/09/24 08:28 09/09/24 08:28 Vital Signs Reviewed: Yes Narrative: BP range overnight 120-140s/70-90s. Constitutional Constitutional: no acute distress and cooperative Detailed HEENT Exam Head: Present normocephalic and atraumatic Respiratory Exam Respiratory Exam: Normal Abdominal Exam Abdomen: Tender (mildly) Fundal Exam Fundus: Below Umbilicus and Firm Extremities Exam Extremity Exam: negative Calf Tenderness or Edema Comment: 2+ DTRs b/l Detailed Neurological Exam Neurological: Present alert, oriented X3 and CN II-XII intact Results Hemoglobin/Hematocrit: Hgb 12.0 g/dL (11.2-15.7) 09/09/24 04:00 Hct 36.0 % (36.0-46.0) 09/09/24 04:00 Abnormal Lab Findings: Abnormal Labs 09/06/24 09/06/24 09/07/24 19:53 23:45 19:21 WBC 15.09 H Hct MPV 13.0 H Chloride 108 H Anion Gap 12.1 H BUN Calcium Magnesium Alkaline Phosphatase 209 H 203 H Total Protein 6.3 L Albumin 2.5 L 2.4 L Ur THC Screen Positive A 09/08/24 09/08/24 09/08/24 06:48 10:45 17:00 WBC Hct 35.6 L MPV 12.7 H Chloride 108 H Anion Gap BUN 4 L Calcium 7.9 L Magnesium 5.6 H* 5.1 H* 4.4 H* Alkaline Phosphatase 188 H Total Protein 6.2 L Albumin 2.3 L Ur THC Screen 09/08/24 09/09/24 22:42 04:00 WBC Hct MPV 12.4 H Chloride Anion Gap BUN 4 L Calcium 8.2 L Magnesium 3.8 H 4.0 H Alkaline Phosphatase 190 H Total Protein Albumin 2.4 L Ur THC Screen
[2024-09-09] MEDS: Varicella Virus Vaccine (Live) 0.5 ML SC (10:55)
[2024-09-10 01:00] VITALS: BP 142/93; PULSE 88; RESP 16; TEMP 36.7; O2SAT 98
[2024-09-10 06:20] VITALS: BP 133/90; PULSE 80; RESP 17; TEMP 36.9; O2SAT 99
[2024-09-10] MEDS: Labetalol 100 MG TAB 200 MG PO (08:15)
[2024-09-10] MEDS: NIFEdipine-CR 30 MG TABCR PO (08:15)
[2024-09-10 08:27] VITALS: BP 138/89; PULSE 102; RESP 12; TEMP 36.8
--- NOTE | 2024-09-10 08:58 | W.PM.OBDISCH ---
Date of service: 09/10/24 Time of Service: 08:00 DS: Diagnosis Discharge Diagnosis (1) Pre-eclampsia: Status: Acute Asessment and Plan: Will come to center whenever the baby has a weight check scheduled at the Peds office, should be Fri or Sat. Will return for routine Ob visit next week with me. We reviewed s/s of PEC and reasons to call. Discharge info given. (2) (normal spontaneous vaginal delivery): Status: Acute Asessment and Plan: She plans an IUD for contraception. We reviewed the importance of using condoms if any intercourse prior to IUD insertion. Recommending avoiding anything in the vagina for the first month. Reviewed reasons to call and discussed risk of VTE and PPD. Discharge Plan Disposition Patient Disposition: Home Condition: Good Discharge Details Reason For Visit: PEC Admit Date/Time: 09/06/24 14:01 Admit Provider: Vicky Escalante Attending Provider: Vicky Escalante Primary Care Provider: Suinta Escobar Hospital Course Hospital Course: P0 admittend at 37wks for IOL for PEC. She received 1 dose of misoprostol, then was started on pitocin and eventually underwent AROM with quick progression into active labor. She received an epidural and pushed 10min for an uncomplicated NVD. Placenta delivered intact. Baby did well. She had some severe range BPs during epidural placement and around the time of delivery for which she received 1 dose of IV labetalol. BPs elevated again on PPD#1 and she received 1 more dose of IV labetalol. She ended up on Nifedipine 30XL BID and Labetalol 200mg BID with adequate BP control. She was stable and discharged on PPD#3. Home Meds and New Rx's Prescriptions: No Action Gummies 400 mcg-35 mg- 25 mg-5 mg tablet,chewable 2 tab PO DAILY Discharge Instructions Stand Alone Forms: BC Instructions, BC Post Vaginal Deliver Activity:: Nothing in the vagina Equipment/Supplies:: No Equipment Needed Diet:: As Tolerated Discharge Orders Discharge Orders: Discharge Order (Routine); Ordered 09/10/24 Ordered By: Vicky Escalante Discharge Data Discharge Date/Time-TO BE ENTERED AT DEPARTURE: 09/10/24 10:50 OB:DS Summary Summary Vaginal Delivery Method: Spontaneaous Episiotomy Description: None Laceration Description: Other Laceration Extension: First Degree Contraception Discussed Contraception Discussed: Yes Contraceptive Plan: IUD, Infant Gender-Baby A: Female Status at Discharge Functional status at discharge: independent ambulation Overall status at discharge: patient is back to baseline Mental Status: mental status grossly normal Speech and Movement: speech and movement normal Mood: congruent mood Affect: normal affect Quality:SDOH Health Related Social Needs: No Data to Display Exam Physical Exam Vital signs: Temp Pulse Resp BP Pulse Ox 98.2 F 102 H 12 138/89 99 09/10/24 08:27 09/10/24 08:27 09/10/24 08:27 09/10/24 08:27 09/10/24 06:20 Constitutional Constitutional: no acute distress and cooperative Detailed HEENT Exam Head: Present normocephalic and atraumatic Respiratory Exam Respiratory Exam: Normal Abdominal Exam Abdomen: Tender (mildly) Fundal Exam Fundus: Below Umbilicus and Firm Extremities Exam Extremity Exam: negative Calf Tenderness or Edema Detailed Neurological Exam Neurological: Present alert, oriented X3 and CN II-XII intact PFSH All Active Problems (Updated 09/09/24 @ 08:53 by Vicky Escalante MD) (normal spontaneous vaginal delivery) (Acute) Labor induction at 37 weeks due to preeclampsia with severe features. Vaginal 09/07/2024, female Tammie Pre-eclampsia (Acute) Maternal varicella, non-immune (Acute) Marijuana use (Acute) Anxiety (Chronic) Medical History (Updated 09/09/24 @ 08:53 by Vicky Escalante MD) Family history of drug use ADHD Ovarian cyst, right declined f/u sono Hx of prematurity Born at 34 weeks Tibial torsion Family History (Updated 03/09/24 @ 11:00 by Kinza Mauricio CNM) Father Essential hypertension Maternal Grandmother Hypertension Diabetes Maternal Grandfather Diabetes Alcohol use disorder Brother Depression Anxiety ADHD Substance use disorder Paternal Grandfather Alcohol use disorder Paternal Grandmother Alcohol use disorder Social History (Updated 03/09/24 @ 12:17 by Kinza Mauricio CNM) Smoking/Tobacco Use Status: Never Smoking risk assessment performed?: Yes Drug use: Never Substance use type: marijuana Housing: house Sexually active: Yes Do you feel safe at home: Yes Do you feel safe in your relationship?: Yes Female Reproductive History Menstrual control method: progestin IUCD History History 1 Para 0 Hx # Term Pregnancies 0 Multiple births Hx # Pregnancies Ectopic pregnancies AB induced Hx Number of Living Children AB spontaneous DS: Data Vitals/I&O Vitals and I&O: Vital Signs Temperature 98.2 F 09/10/24 08:27 Temperature Source Forehead 09/10/24 08:27 Pulse 102 H 09/10/24 08:27 Pulse Rhythm Regular 09/10/24 08:27 Respiratory Rate 12 09/10/24 08:27 Respiratory Depth Normal 09/09/24 20:00 Blood Pressure 138/89 09/10/24 08:27 Blood Pressure Mean 105 09/10/24 08:27 Pulse Oximetry 99 09/10/24 06:20 Oxygen Delivery Method Room Air 09/06/24 19:54 Oxygen Flow Rate 0 09/06/24 19:54 Comment prior to BP meds 09/09/24 08:28 Intake & Output 09/09/24 09/09/24 09/10/24 11:59 23:59 11:59 Intake Total 400 / 400 Output Total 2800 / 4000 1200 / 4000 950 / 950 Balance -783.75 / -1973.75 -1190 / -1973.75 -550 / -550 Intake: IV 991. / 1001. Oral 1025 / 1025 400 / 400 Output: Urine 2800 / 4000 1200 / 4000 950 / 950 Other: Urine Color Yellow Yellow
== END 2024-09-10 10:50 | disposition home or self-care (01) | DRG 807 ==
PROVIDERS: Obstetrics & Gynecology; Admitting Provider Obstetrics & Gynecology; PCP Obstetrics & Gynecology; Visit Provider Obstetrics & Gynecology
DX: O14.14 Severe pre-eclampsia complicating childbirth (principal); Z37.0 Single live birth; O99.324 Drug use complicating childbirth; Z28.39 Other underimmunization status; O43.193 Other malformation of placenta, third trimester; Z3A.37 37 weeks gestation of pregnancy; O99.344 Other mental disorders complicating childbirth; F41.9 Anxiety disorder, unspecified; O99.824 Streptococcus B carrier state complicating childbirth; F12.90 Cannabis use, unspecified, uncomplicated; O70.0 First degree perineal laceration during delivery
CPT/HCPCS: 36415; 80053; 80307; 85027; 86850; 86900; 86901; 90716; 59200; 83735; 85025; 88307; 88361; J1920; J2540; J3475; J3490

== ENCOUNTER 2024-10-20 11:37 | Outpatient (REF) | payer MEDICAID, SELFPAY ==
--- NOTE | 2024-10-20 11:45 | PAPFT_PTH ---
PATIENT: Sidney Deshpande LOC: [facility] U#:[id number] AGE/SX: 19/F ROOM: RE10/20/[address]: Vicky Escalante MD : 2005 BED: DIS: 10/20/2024 SPEC #: [id number] RECD: 10/20/24 18:29 STATUS: JEFFERY REGrace #: [id number] ROSALINA: 10/20/24 11:[address]: Vicky Escalante DEPT: PENDING SALE TO [facility] Cytology RECD BY: Theresa Awan Tissues: 1 - CX/ENDOCX FOR PAP SMEARS Procedures: PAP THIN PREP/UVM Screening Comments: [id number] (UNSATISFACTORY FOR EVALUATION)
== END 2024-10-20 11:38 | disposition home or self-care (01) ==
LOC: LBN 11:37
PROVIDERS: PCP Obstetrics & Gynecology; Visit Provider Obstetrics & Gynecology
DX: Z12.4 Encounter for screening for malignant neoplasm of cervix (principal)
CPT/HCPCS: 88142

== ENCOUNTER 2024-11-03 11:17 | Outpatient (REF) | payer MEDICAID, SELFPAY ==
--- NOTE | 2024-11-03 10:50 | PAPFT_PTH ---
PATIENT: Sidney Deshpande LOC: [facility] U#:[id number] AGE/SX: 19/F ROOM: RE11/03/[address]: Vicky Escalante MD : 2005 BED: DIS: 11/03/2024 SPEC #: [id number] RECD: 11/03/24 13:18 STATUS: JEFFERY REGrace #: [id number] ROSALINA: 11/03/24 10:[address]: Vicky Escalante DEPT: [facility] Cytology RECD BY: Theresa Awan Tissues: 1 - CX/ENDOCX FOR PAP SMEARS Procedures: PAP THIN PREP/UVM Screening Comments: [id number] (UNSATISFACTORY FOR EVALUATION)
== END 2024-11-03 11:18 | disposition home or self-care (01) ==
LOC: LBN 11:17
PROVIDERS: PCP Obstetrics & Gynecology; Visit Provider Obstetrics & Gynecology
DX: Z12.4 Encounter for screening for malignant neoplasm of cervix (principal); R87.615 Unsatisfactory cytologic smear of cervix
CPT/HCPCS: 88142

== ENCOUNTER 2024-11-07 09:27 | Outpatient (CLI) | payer MEDICAID, SELFPAY ==
[2024-11-07 09:42] VITALS: BP 119/71; PULSE 88
[2024-11-07 09:43] VITALS: BP 119/71; PULSE 88; RESP 16; TEMP 37
--- NOTE | 2024-11-07 09:45 | PGE_ITS ---
Date of Service Date of service: 11/07/24 Time of Service: 09:45 Assessment and Plan Assessment and plan (1) Mastitis: Status: Acute Assessment and plan: Will start Bactrim DS BID. Take tylenol 1g q8hrs and ibuprofen 600mg q6hrs. Continue to ice and do lymphatic massage. Call office on saturday am if not showing significant improvement. Call earlier with worsening symptoms. Subjective Subjective Interval history since last seen: Sidney is about 2mo pp s/p NVD. She called today with increasing left breast pain. She has been dealing with breast engorgement that had improved with lymphatic massage 5 days ago but the pain was worsened and today she noticed red ness just above the nipple. She is pumping and bottle feeding her daughter. Now it feels too sore to pump. She has been taking ibuprofen regularly and using ice at home. She denies fever/chills. Exam Chest Other: Left breast with area of erythema extending from the nipple up to 12-1o clock. Very tender to touch. Objective Last Vital Signs Temp 98.6 F 11/07/24 09:43 Pulse 88 11/07/24 09:43 Resp 16 11/07/24 09:43 BP 119/71 11/07/24 09:43 Time Spent with Patient Time Spent with Patient: <25 minutes Time was spent: preparing to see the patient(eg.review tests), obtaining and/or reviewing separately otained hiistory, ordering medications,tests, procedures and counseling the patient
[2024-11-07] MEDS: Acetaminophen 500 MG TAB 1000 MG PO (10:14)
[2024-11-07] MEDS: Sulfameth/Trimeth DS TAB 1 TAB PO (10:15)
== END 2024-11-07 10:35 ==
LOC: BCD 09:29 → OBS 09:41
PROVIDERS: PCP Obstetrics & Gynecology; Visit Provider Obstetrics & Gynecology
DX: N61.1 Abscess of the breast and nipple (principal)
CPT/HCPCS: 10160; 99284

== ENCOUNTER 2024-11-07 19:41 | Emergency (ER) | payer MEDICAID, SELFPAY ==
[2024-11-07 19:45] VITALS: BP 134/80; PULSE 102; RESP 19; TEMP 37; O2SAT 98
--- NOTE | 2024-11-07 20:19 | W.ED.GENAD ---
Discharge Plan Disposition Patient Disposition: Home Condition: Stable Discharge Details Clinical Impression: Mastitis, Breast abscess Primary Care Provider: Sunita Escobar ED Provider: Tamara Salgado Home Meds and New Rx's Prescriptions: No Action sulfamethoxazole-trimethoprim [Bactrim DS] 800-160 mg tablet 1 tab PO BID Qty: 20 0RF acetaminophen 500 mg capsule 1,000 mg PO QID PRN (Reason: pain) Qty: 90 0RF Discharge Instructions Instructions: Fluid Culture, Mastitis Additional Instructions: Please follow-up with your billet grinder. In the meantime if you do get worse or develop any new or concerning symptoms please return to the emergency department. As discussed please continue pumping and breast-feeding. Please take your antibiotic as prescribed and take [id number] pain medication as needed for pain relief. HPI General Date/Time Provider Initiated Documentation: 11/07/24 19:52. HPI Narrative: The patient is a 19-year-old female with current diagnosis of mastitis who comes to the emergency department for left breast abscess. History is obtained from the patient and product development consultant who accompanies the patient today. Reports that the patient was diagnosed by her billet grinder with mastitis and has been taking Bactrim as prescribed. Reports that there is a spot on her left breast that has become increasingly firm and painful as the day progressed. Reports she was evaluated earlier today by product development consultant and she informs me that this firmness was not present there in the morning. Reports that she cannot tolerate pumping on the left breast because of significant discomfort. Reports she has been applying ice to the region without any relief. Reports otherwise that she feels at baseline health. Denies any fever with this. Denies any chest pain or shortness of breath. Related Data Home Medications ?Medication ?Instructions ?Recorded ?Confirmed acetaminophen 500 mg capsule 1,000 mg (2 x 500 mg) PO QID PRN 11/07/24 11/07/24 pain #90 caps sulfamethoxazole 800 1 tab PO BID #20 tabs 11/07/24 11/07/24 mg-trimethoprim 160 mg tablet (Bactrim DS) Previous Rx's ?Medication ?Instructions ?Recorded acetaminophen 500 mg capsule 1,000 mg (2 x 500 mg) PO QID PRN 11/07/24 pain #90 caps sulfamethoxazole 800 1 tab PO BID #20 tabs 11/07/24 mg-trimethoprim 160 mg tablet (Bactrim DS) Allergies Allergy/AdvReac Type Severity Reaction Status Date / Time No Known Allergies Allergy Verified 11/07/24 19:52 General Stated Complaint: Cellulitis WILLIE: 3 Review of Systems Narrative: Review of systems are negative except as mentioned. Exam Narrative Exam Narrative: General appearance: The patient is alert, has no immediate need for airway protection and no signs of toxicity. Respiratory: There are no retractions, lung are clear to auscultation bilaterally. Cardiovascular: Regular in rate and rhythm. Radial pulses are intact and equal. Gastrointestinal: Abdomen is soft and non-tender to palpation throughout with normal bowel sounds. Neurologic: The patient is alert, awake and oriented to time, person and place. Skin: The patient's left breast is tense and at the 12:00 area just above the areola the patient has a superficial palpable area of induration. Her left breast is tender to palpation throughout. There is white milk dribbling from her left nipple. Course Vital Signs Vital signs: Vital Signs Temperature 37.0 C 11/07/24 19:45 Pulse 102 H 11/07/24 19:45 Respiratory Rate 19 11/07/24 19:45 Blood Pressure 134/80 11/07/24 19:45 Pulse Oximetry 98 11/07/24 19:45 Temperature 37.0 C 11/07/24 19:45 Temperature Source Tympanic 11/07/24 19:45 Pulse 102 H 11/07/24 19:45 Respiratory Rate 19 11/07/24 19:45 Blood Pressure 134/80 11/07/24 19:45 Blood Pressure Position Sitting 11/07/24 19:45 Pulse Oximetry 98 11/07/24 19:45 Oxygen Delivery Method Room Air 11/07/24 19:45 Oxygen Flow Rate 0 11/07/24 19:45 Pain Level 10 11/07/24 19:45 Lab/Test Results Lab/Test Results: 11/07/24 20:19 Breast - Left Body Fluid Culture - Pending 11/07/24 20:19 Breast - Left Gram Stain - Pending Procedure Abscess Drainage Provider that performed the procedure: Tamara Salgado Patient Consented: Verbally Complications: None Procedure Description Note: After localizing the area of concern I used alcohol swabs to cleanse her left breast. I subsequently anesthetized it using lidocaine with epinephrine, field block technique and this was successful in providing anesthesia to the area. Using an 18-gauge needle I was able to aspirate about 30 mL of hernandez-colored liquid. Patient had immediate relief with this. More fluid continued to drain from the site of the needle which was easily removed without bleeding. 4 x 4 gauze is placed along this area to collect any further drainage. The patient tolerated the procedure without any complications. Medical Decision Making I spoke with the billet grinder on the phone explaining patient condition. The concern is the patient may have developed an abscess that needs drainage. I spoke with the patient and told her that if she does have an abscess on her left breast I would only be comfortable on draining this if it is superficial in nature and not with the use of a scalpel instead with use of needle with aspiration. I told her there is a risk of scar tissue and she would like for me to proceed. I was able to successfully aspirate the patient's abscess and aspirate fluid is sent for culture. Patient is to be discharged shortly. She is encouraged to continue pumping, take her antibiotic as prescribed, apply ice pack and take [id number] medication as needed. She is asked to follow-up with her billet grinder and urged to return to the emergency department with any worsening symptoms or any other concerns. Quality:SDOH Health Related Social Needs: No Data to Display PFSH All Active Problems (Updated 11/07/24 @ 20:23 by Tamara Salgado DO) Breast abscess (Acute) Mastitis (Acute) Breast engorgement, obstetric (Acute) Marijuana use (Acute) Anxiety (Chronic) Medical History (Updated 11/07/24 @ 20:23 by Tamara Salgado DO) History of pre-eclampsia 37wk induction for severe features. Presence of IUD Family history of drug use ADHD Ovarian cyst, right declined f/u sono Hx of prematurity Born at 34 weeks Tibial torsion Family History Father Essential hypertension Maternal Grandmother Hypertension Diabetes Maternal Grandfather Diabetes Alcohol use disorder Brother Depression Anxiety ADHD Substance use disorder Paternal Grandfather Alcohol use disorder Paternal Grandmother Alcohol use disorder Social History Smoking/Tobacco Use Status: Never Smoking risk assessment performed?: Yes Alcohol Intake: never Drug use: Never Substance use type: does not use Housing: house Sexually active: Yes Do you feel safe at home: Yes Do you feel safe in your relationship?: Yes Female Reproductive History Menstrual control method: progestin IUCD History History 1 Para 1 Hx # Term Pregnancies Multiple births Hx # Pregnancies 1 Ectopic pregnancies AB induced Hx Number of Living Children 1 AB spontaneous Past Pregnancies Del. Date GA/Weeks # Preg Succ Route Wgt Sex Labor Lgth Anesthesia Location Prov Complic 09/07/24 37 No Yes vaginal 2126.214 g Female Induction <18hrs, Active ~5hrs [facility] - [facility] Delivery Date: 09/07/24 Last Updated by: Vicky Escalante MD October IND for PEC, mag started immediately post delivery due to severe range BPs - remained labile POCUS Exam (ED) Limited Soft Tissue Exam PROVIDER THAT PERFORMED THE STUDY: Tamara Salgado
== END 2024-11-07 20:29 | disposition home or self-care (01) ==
PROVIDERS: Emergency Provider Emergency Medicine; PCP Obstetrics & Gynecology
DX: N61.1 Abscess of the breast and nipple (principal)
CPT/HCPCS: 10160; 87077; 87070; 87186; 87205

== ENCOUNTER 2024-11-08 14:43 | Emergency (ER) | payer MEDICAID, SELFPAY ==
[2024-11-08 14:44] VITALS: BP 132/86; PULSE 84; RESP 16; TEMP 36.4; O2SAT 98
--- NOTE | 2024-11-08 14:50 | ED.GENADUL_ITS ---
Discharge Plan Disposition Patient Disposition: Home Condition: Stable Discharge Details Clinical Impression: Breast abscess Primary Care Provider: Sunita Escobar ED Provider: Tamara Salgado Home Meds and New Rx's Prescriptions: No Action sulfamethoxazole-trimethoprim [Bactrim DS] 800-160 mg tablet 1 tab PO BID Qty: 20 0RF acetaminophen 500 mg capsule 1,000 mg PO QID PRN (Reason: pain) Qty: 90 0RF Discharge Instructions Instructions: Abscess Incision and Drainage ED Additional Instructions: Please follow-up with your OB. In the meantime if you do get worse or develop any new or concerning symptoms please return to the emergency department. HPI General Date/Time Provider Initiated Documentation: 11/08/24 14:50 . HPI Narrative: The patient is a 19-year-old female who returns to the emergency department for left breast abscess. Patient was evaluated here yesterday and had needle drainage of left breast abscess by me. Reports that she had immediate relief but it reaccumulated from noon and it had gotten worse from then. Reports that she called her requirements manager twice and she was encouraged to return to the emergency department. Reports she has been compliant with the Bactrim that she has been taking. She reports that she continues to feel at her baseline health. Denies any fever with this. Reports she has been breast-feeding and pumping as scheduled. Related Data Home Medications ?Medication ?Instructions ?Recorded ?Confirmed acetaminophen 500 mg capsule 1,000 mg (2 x 500 mg) PO QID PRN 11/07/24 11/08/24 pain #90 caps sulfamethoxazole 800 1 tab PO BID #20 tabs 11/07/24 11/08/24 mg-trimethoprim 160 mg tablet (Bactrim DS) Previous Rx's ?Medication ?Instructions ?Recorded acetaminophen 500 mg capsule 1,000 mg (2 x 500 mg) PO QID PRN 11/07/24 pain #90 caps sulfamethoxazole 800 1 tab PO BID #20 tabs 11/07/24 mg-trimethoprim 160 mg tablet (Bactrim DS) Allergies Allergy/AdvReac Type Severity Reaction Status Date / Time No Known Allergies Allergy Verified 11/08/24 14:48 General Stated Complaint: Cellulitis WILLIE: 3 Review of Systems Narrative: Review of systems are negative except as mentioned. Exam Narrative Exam Narrative: General appearance: The patient is alert, has no immediate need for airway protection and no signs of toxicity. Neurologic: The patient is alert, awake and oriented to time, person and place. Skin: The patient's left breast is tense and at the 12:00 area just above the areola the patient has a superficial palpable area of induration. Her left breast is tender to palpation throughout. There is white milk dribbling from her left nipple. Course Vital Signs Vital signs: Vital Signs Temperature 36.4 C 11/08/24 14:44 Pulse 84 11/08/24 14:44 Respiratory Rate 16 11/08/24 14:44 Blood Pressure 132/86 11/08/24 14:44 Pulse Oximetry 98 11/08/24 14:44 Temperature 36.4 C 11/08/24 14:44 Temperature Source Oral 11/08/24 14:44 Pulse 84 11/08/24 14:44 Respiratory Rate 16 11/08/24 14:44 Blood Pressure 132/86 11/08/24 14:44 Blood Pressure Position Sitting 11/08/24 14:44 Pulse Oximetry 98 11/08/24 14:44 Oxygen Delivery Method Room Air 11/08/24 14:44 Oxygen Flow Rate 0 11/08/24 14:44 Pain Level 6 11/08/24 14:44 Procedure Abscess Drainage Patient Consented: Verbally Complications: None Procedure Description Note: After localizing the area of concern I used alcohol swabs to cleanse her left breast. I subsequently anesthetized it using lidocaine with epinephrine, field block technique and this was successful in providing anesthesia to the area. Using an 18-gauge needle I was able to aspirate 20 cc of green purulence however her breast continue to drain so with gentle pressure I was able to evacuate the abscess into a basin with large amount of purulence that was successfully removed.. Patient had immediate relief with this. 4 x 4 gauze is placed along this area to collect any further drainage. The patient tolerated the procedure without any complications. Medical Decision Making The patient report significant relief after drainage yesterday. On exam it appears that the abscess has reaccumulated. I explained to her again the necessity of abscess drainage with needle versus incision and drainage. I explained to her that the risk and benefit which includes but not limited to worsening infection, scar. She tells me to just get it done. I was able to get a large amount of purulent drainage this time around. The drainage had been particularly malodorous and greenish in color. I have not sent for a culture again since this was just done yesterday. She has significant relief from this. The size of the abscess today would be about 4 cm x 4 cm and after needle aspiration this large abscess has deflated considerably. Patient is ready for discharge. She is asked to use either cold pack or warm pack, what ever feels better, continue taking her antibiotic and follow-up with her requirements manager tomorrow. Quality:SDOH Health Related Social Needs: No Data to Display PFSH All Active Problems (Updated 11/08/24 @ 15:35 by Tamara Salgado DO) Breast abscess (Acute) Mastitis (Acute) Breast engorgement, obstetric (Acute) Marijuana use (Acute) Anxiety (Chronic) Medical History (Updated 11/08/24 @ 15:35 by Tamara Salgado DO) History of pre-eclampsia 37wk induction for severe features. Presence of IUD Family history of drug use ADHD Ovarian cyst, right declined f/u sono Hx of prematurity Born at 34 weeks Tibial torsion Family History Father Essential hypertension Maternal Grandmother Hypertension Diabetes Maternal Grandfather Diabetes Alcohol use disorder Brother Depression Anxiety ADHD Substance use disorder Paternal Grandfather Alcohol use disorder Paternal Grandmother Alcohol use disorder Social History Smoking/Tobacco Use Status: Never Smoking risk assessment performed?: Yes Alcohol Intake: never Drug use: Never Substance use type: does not use Housing: house Sexually active: Yes Do you feel safe at home: Yes Do you feel safe in your relationship?: Yes Female Reproductive History Menstrual control method: progestin IUCD History History 1 Para 1 Hx # Term Pregnancies Multiple births Hx # Pregnancies 1 Ectopic pregnancies AB induced Hx Number of Living Children 1 AB spontaneous Past Pregnancies Del. Date GA/Weeks # Preg Succ Route Wgt Sex Labor Lgth Anesth esia Location [facility] 09/07/24 37 No Yes vaginal 2126.214 g Female Induction <18hrs, Act sherri ~5hrs [facility] - [facility] Delivery Date: 09/07/24 Last Updated by: MD Tammie Richter October IND for PEC, mag started immediately post delivery due to severe range BPs - remained labile
[2024-11-08 15:05] VITALS: BP 132/86; PULSE 84; RESP 16; TEMP 36.4; O2SAT 98
--- NOTE | 2024-11-11 08:35 | NUR.NOTE ---
Accessed Pt chart to obtain the antibiotic given to the patient. Gave the Patient Report form to Dr Osuna
== END 2024-11-08 15:39 | disposition home or self-care (01) ==
PROVIDERS: Emergency Provider Emergency Medicine; PCP Obstetrics & Gynecology
DX: N61.1 Abscess of the breast and nipple (principal)
CPT/HCPCS: 10160; 99283